=== PATIENT | male | born 1975 | race Caucasian/White ===

== ENCOUNTER 2016-08-27 11:47 | Emergency (ER) | payer OTHER ==
[~2016-08-27] VITALS: Ht 177.8 cm; Wt 98.0 kg
[2016-08-27 11:55] VITALS: Ht 177.8 cm; Wt 98.0 kg
[2016-08-27] MEDS ORDERED: SODIUM CHLORIDE 0.9% 1000ML 1,000 ML IV STA (12:25)
--- NOTE | 2016-08-27 12:33 | EMERGENCY ROOM VISIT NOTE ---
History First contact with patient: 12:17 Chief Complaint: FEVER Stated Complaint: HEART BEATING FUNNY, FEVER History of Present Illness The patient is a 41 year old male who presents to the Emergency Room with complaints of urinary symptoms. The patient is a paraplegic and self caths. The patient has a history of recurring urinary tract infections. He also had pyelonephritis approximately one year ago. The patient states he had a fever this morning that was 104F. He states that he took Advil at 9 AM. The patient states that his urine is quite dark and does notice some burning with urination. He denies any pain in his chest or trouble breathing. He denies any abdominal pain, nausea or vomiting. He denies any back pain. Review of Systems A 10 system review of systems was completed with positives and pertinent negatives listed in the HPI. Past Medical/Surgical History Medical Problems: (1) Acute urinary tract infection (2) Kidney stone (3) Small bowel obstruction Social History Smoking Status: Never Smoker Alcohol Use: none Drug Use: none Marital Status: single Housing Status: lives alone Occupation Status: unemployed Current/Historical Medications Scheduled Cephalexin Monohydrate (Keflex), 500 MG PO QID Gabapentin (Gabapentin), 800 MG PO TID Ibuprofen Tab (Advil), 400 MG PO DAILY Methenamine Hippurate (Methenamine Hippurate), 1 GM PO BID Multiple Vitamin (Multivitamin), 1 TAB PO DAILY Temazepam (Restoril), 30 MG PO HS Allergies Coded Allergies: Kiwi (Verified Allergy, Severe, THROAT SWELLING, 08/27/16) Adhesives (Verified Allergy, Intermediate, BLISTERS , 08/27/16) Baclofen (Verified Allergy, Intermediate, HIVES, 08/27/16) Hydromorphone (Verified Allergy, Mild, RASH, 08/27/16) Aloe (Verified Allergy, Unknown, 08/27/16) Diphenhydramine (Verified Allergy, Unknown, 08/27/16) Heparin (Verified Allergy, Unknown, 08/27/16) Hydrocortisone (Verified Allergy, Unknown, RASH;ITCHING;SEVERE SWELLING, ) Megestrol (Verified Allergy, Unknown, 08/27/16) Nitrofurantoin (Verified Allergy, Unknown, 08/27/16) Oxybutynin (Verified Allergy, Unknown, 08/27/16) Replaces DITROPAN SYRU Pregabalin (Verified Allergy, Unknown, 08/27/16) Quinolones (Verified Allergy, Unknown, HAS TAKEN LEVAQUIN IN PAST W/O RXN DESPITE "QUINOLONE" ALLER, 08/27/16) Sulfa Drugs (Verified Allergy, Unknown, 08/27/16) Physical Exam Vital Signs Date Time Temp Pulse Resp B/P Pulse Ox O2 Delivery O2 Flow Rate FiO2 08/27/16 14:34 91 141/104 99 08/27/16 13:58 36.7 88 151/97 98 08/27/16 11:55 36.8 98 18 168/113 98 Room Air Physical Exam VITALS: Vitals are noted on the nurse's note and reviewed by myself. Vital signs stable. The patient is afebrile. GENERAL: This is a 41-year-old male, in no acute distress, nondiaphoretic, well- developed well-nourished. SKIN: The skin was without rashes, erythema, edema, or bruising. There is no tenting of the skin. Capillary reflex less than 2 seconds. HEAD: Normocephalic atraumatic. EARS: The external ears are normal in appearance. EYES: Pupils equal round and reactive to light and accommodation. Conjunctivae without injection, sclerae without icterus. Extraocular movements intact. NOSE: Patent, turbinates without inflammation or discharge. MOUTH: Mucous membranes moist. Tonsils are not enlarged. Pharynx without erythema or exudate. Uvula midline. Airway patent. Tongue does not deviate. NECK: Supple without nuchal rigidity. No JVD. HEART: Regular rate and rhythm without murmurs gallops or rubs. LUNGS: Clear to auscultation bilaterally without wheezes, rales or rhonchi. No retractions or accessory muscle use. ABDOMEN: Positive bowel sounds x 4. Soft, nontender, without masses or organomegaly. There is no CVA tenderness. MUSCULOSKELETAL: The patient is paraplegic. He does not have sensation below the knees. The patient's strength and movement is at his baseline. NEURO: Patient was alert and oriented to person place and time. Medical Decision & Procedures Laboratory Results 08/27/16 12:35 Red Blood Count 5.45, Mean Corpuscular Volume 82.0, Mean Corpuscular Hemoglobin 28.8, Mean Corpuscular Hemoglobin Concent 35.1, Mean Platelet Volume 9.1, Neutrophils (%) (Auto) 61.1, Lymphocytes (%) (Auto) 28.0, Monocytes (%) (Auto) 9.6, Eosinophils (%) (Auto) 0.0, Basophils (%) (Auto) 0.3, Neutrophils # (Auto) 3.50, Lymphocytes # (Auto) 1.61, Monocytes # (Auto) 0.55, Eosinophils # (Auto) 0.00, Basophils # (Auto) 0.02 08/27/16 12:35 Test 08/27/16 12:35 08/27/16 12:50 White Blood Count 5.74 K/uL (4.8-10.8) Red Blood Count 5.45 M/uL (4.7-6.1) Hemoglobin 15.7 g/dL (14.0-18.0) Hematocrit 44.7 % (42-52) Mean Corpuscular Volume 82.0 fL (80-100) Mean Corpuscular Hemoglobin 28.8 pg (25-34) Mean Corpuscular Hemoglobin Concent 35.1 g/dl (32-36) Platelet Count 319 K/uL (130-400) Mean Platelet Volume 9.1 fL (7.4-10.4) Neutrophils (%) (Auto) 61.1 % Lymphocytes (%) (Auto) 28.0 % Monocytes (%) (Auto) 9.6 % Eosinophils (%) (Auto) 0.0 % Basophils (%) (Auto) 0.3 % Neutrophils # (Auto) 3.50 K/uL (1.4-6.5) Lymphocytes # (Auto) 1.61 K/uL (1.2-3.4) Monocytes # (Auto) 0.55 K/uL (0.11-0.59) Eosinophils # (Auto) 0.00 K/uL (0-0.5) Basophils # (Auto) 0.02 K/uL (0-0.2) RDW Standard Deviation 40.1 fL (36.4-46.3) RDW Coefficient of Variation 13.4 % (11.5-14.5) Immature Granulocyte % (Auto) 1.0 % Immature Granulocyte # (Auto) 0.06 K/uL (0.00-0.02) Anion Gap 13.0 mmol/L (3-11) Est Creatinine Clear Calc Drug Dose 151.2 ml/min Estimated GFR () 132.5 Estimated GFR (Non- 114.3 BUN/Creatinine Ratio 24.6 (10-20) Calcium Level 9.7 mg/dl (8.5-10.1) Total Bilirubin 0.5 mg/dl (0.2-1) Aspartate Amino Transf (AST/SGOT) 30 U/L (15-37) Alanine Aminotransferase (ALT/SGPT) 64 U/L (12-78) Alkaline Phosphatase 122 U/L (45-117) Total Protein 8.1 gm/dl (6.4-8.2) Albumin 4.5 gm/dl (3.4-5.0) Globulin 3.6 gm/dl (2.5-4.0) Albumin/Globulin Ratio 1.3 (0.9-2) Urine Color YELLOW Urine Appearance TURBID (CLEAR) Urine pH 7.0 (4.5-7.5) Urine Specific Collins 1.025 (1.000-1.030) Urine Protein TRACE (NEG) Urine Glucose (UA) NEG (NEG) Urine Ketones NEG (NEG) Urine Occult Blood 1+ (NEG) Urine Nitrite POS (NEG) Urine Bilirubin NEG (NEG) Urine Urobilinogen NEG (NEG) Urine Leukocyte Esterase SMALL (NEG) Urine WBC (Auto) >30 /hpf (0-5) Urine RBC (Auto) 0-4 /hpf (0-4) Urine Hyaline Casts (Auto) 5-10 /lpf (0-5) Urine Epithelial Cells (Auto) 10-20 /lpf (0-5) Urine Bacteria (Auto) 1+ (NEG) Urine Pathogenic Casts /lpf (0) Medications Administered Medications (Trade) Dose Ordered Sig/Sky Route Start Time Stop Time Status Last Admin Dose Admin Sodium Chloride (Nss 1000ml) 1,000 ml @ 999 mls/hr Q1H1M STAT IV 08/27/16 12:25 08/27/16 15:06 DC 08/27/16 12:25 999 MLS/HR Ceftriaxone Sodium (Rocephin Inj) 1 gm NOW STAT IV 08/27/16 13:47 08/27/16 15:06 DC 08/27/16 13:55 1 GM Acetaminophen (Tylenol Tab) 1,000 mg NOW STAT PO 08/27/16 13:59 08/27/16 15:06 DC 08/27/16 14:20 1,000 MG ED Course I did review previous urine cultures. The patient typically grows out organisms that are resistant to fluoroquinolones but seemed to be sensitive to cephalosporins. The patient was seen and examined. Previous visits were reviewed. The patient is afebrile. He is nontoxic in appearance. He does not have a leukocytosis. He does not have any significant electrolyte abnormality. Urinalysis suggests urinary tract infection. The patient was given 1 g IV Rocephin and will be placed on Keflex. He does not have any vomiting or back pain. I feel that the patient could be trialed as an outpatient with oral Keflex. He was advised to return immediately with any worsening pain, back pain, vomiting or generalized worsening symptoms as he may require admission if the symptoms are not improving. Otherwise, he should follow-up with his family doctor next week. The patient was also seen and examined by who agrees with the assessment and treatment plan. Medical Decision The differential diagnosis includes pyelonephritis, urinary tract infection, kidney stone, sepsis, among others Impression Primary Impression: Urinary tract infection Departure Information Dispostion Home / Self-Care Condition GOOD Prescriptions Cephalexin Monohydrate (Keflex) 500 Mg Cap 500 MG PO QID for 10 Days, #40 CAP Prov: Tory Garcia PA-C 08/27/16 Referrals Oscar Martin M.D. (PCP) Patient Instructions My [facility], Urinary Tract Infecs Men Additional Instructions Keflex every 6 hours for 10 days Advil 600 mg every 6 hours You may take Tylenol every 4-6 hours for additional fever control; no more than 4 g of Tylenol in 24 hours Return to the emergency department immediately with vomiting, back pain, inability to keep the antibiotic down as this may require admission to the hospital for IV antibiotics Otherwise, follow up with your family doctor next week Problem Qualifiers Primary Impression: Urinary tract infection Urinary tract infection type: acute cystitis Hematuria presence: without hematuria Qualified Codes: N30.00 - Acute cystitis without hematuria
[2016-08-27 12:50] LABS: BASO % 0.3 %; BASO ABS # 0.02 K/uL (0-0.2); COMPLETE YES; HEMATOCRIT 44.7 % (42-52); LYMPH ABS # 1.61 K/uL (1.2-3.4); MEAN CORPUSCULAR HEMOGLOBIN 28.8 pg (25-34); MEAN CORPUSCULAR HGB CONC 35.1 g/dl (32-36); MEAN PLATELET VOLUME 9.1 fL (7.4-10.4); MONO % 9.6 %; NEUT % 61.1 %; PLATELET COUNT 319 K/uL (130-400); RED BLOOD COUNT 5.45 M/uL (4.7-6.1); WHITE BLOOD COUNT 5.74 K/uL (4.8-10.8)
[2016-08-27 13:08] LABS: BUN/CREATININE RATIO 24.6 (10-20); CALCIUM 9.7 mg/dl (8.5-10.1); CREATININE 0.77 mg/dl (0.60-1.40); POTASSIUM 3.3 mmol/L (3.5-5.1)
[2016-08-27 13:10] LABS: ALB/GLOB RATIO 1.3 (0.9-2)
[2016-08-27 13:17] LABS: URINE APPEARANCE TURBID (CLEAR); URINE BILIRUBIN NEG (NEG); URINE COLOR YELLOW; URINE NITRITE POS (NEG); URINE SPECIFIC GRAVITY 1.025 (1.000-1.030); UROBILINOGEN NEG (NEG); ZZURINE CULT IF INDIC CATH YES
[2016-08-27 13:23] LABS: MANUAL MICROSCOPIC REQUIRED? NO; REVIEW REQ? YES
[2016-08-27] MEDS ORDERED: CEFTRIAXONE SOD INJ 1 GM ADDVIAL IV STA (13:47)
[2016-08-27 13:58] VITALS: TEMP 36.7
[2016-08-27] MEDS ORDERED: ACETAMINOPHEN 500 MG TAB PO STA (13:59)
[2016-08-27] MEDS ORDERED: CEPH500C PO (14:03)
[2016-08-27 14:34] VITALS: BP 141/104; PULSE 91; O2SAT 99
[2016-08-28] MEDS ORDERED: NRN800 PO (00:47)
[2016-08-28] MEDS ORDERED: METH1TAB5 PO (00:49)
[2016-08-28] MEDS ORDERED: IBUP-103 PO (12:26)
[2016-08-28] MEDS ORDERED: MULTTAB58 PO (12:27)
[2016-08-28] MEDS ORDERED: TEMA30CA4 PO (20:41)
[2016-08-29] MEDS ORDERED: CEFP200T14 PO (10:24)
--- NOTE | 2016-08-29 11:21 | Pharmacy Progress Note ---
ED Pharmacist Culture FollowUp Date of Service: Aug 29, 2016. Patient's urine cx from 08/27 is growing Enterobacter aerogenes. He was admitted to [facility] and received treatment with Rocephin first then was changed to Cefepime. Today he is being discharged by Dr Thomason with a Rx for Vantin which should cover this organism based upon reported sensitivities. No action required from ER standpoint.
[2016-09-20] MEDS ORDERED: MULT-506 PO (10:32)
[2016-10-25] MEDS ORDERED: LEVO1TAB34 PO (09:57)
== END 2016-08-27 14:35 | disposition home or self-care (01) ==
LOC: C.EDB 11:49 → C.EDC 14:35
DX: N30.00 Acute cystitis without hematuria (principal); G82.20 Paraplegia, unspecified; Z87.440 Personal history of urinary (tract) infections

== ENCOUNTER 2016-08-28 19:06 | Inpatient (IN) | payer OTHER ==
[~2016-08-28] VITALS: Ht 177.8 cm; Wt 97.7 kg
[~2016-08-28 19:06] MED LIST: CEPH500C PO; IBUP-103 PO; METH1TAB5 PO; MULTTAB58 PO; NRN800 PO
[2016-08-28] MEDS ORDERED: CEFTRIAXONE SOD INJ 1 GM ADDVIAL IV STA (19:23)
[2016-08-28] MEDS ORDERED: ONDANSETRON INJ 2 MG/ML 2 ML VIAL IV STA (19:23)
[2016-08-28] MEDS ORDERED: SODIUM CHLORIDE 0.9% 1000ML 500 ML IV STA (19:23)
--- NOTE | 2016-08-28 19:37 | EMERGENCY ROOM VISIT NOTE ---
History Report prepared by Za: Ashley Barton Under the Supervision of: Dr. Tito Clayton M.D. First contact with patient: 19:17 Chief Complaint: FEVER Stated Complaint: FEVER,LEFT SIDE KIDNEY PAIN History of Present Illness The patient is a 41 year old male who presents to the Emergency Room with complaints of worsening left flank pain over the past 2 days. His current pain is a 7/10 in severity. He also complains of a fever, nausea, and vomiting that began yesterday. He has been trying to take Tylenol and Advil. The patient has been able to keep some of his medications down, but he occasionally vomits them back up. He cannot keep any food down. He does have a history of kidney stones and has passed at least 2 stones in the past couple of weeks. He has had pyelonephritis in the past and states that his current symptoms feel similar to previous episodes of pyelonephritis. The patient self-caths every 4-6 hours due to a history of paraplegia. The patient was in the emergency room yesterday and was diagnosed with a UTI. He had a chemistry panel and CBC which were unrevealing. Urine showed evidence for infection. He received a dose of ceftriaxone IV and was prescribed Keflex. Source of History: patient Onset: 2 days ago Position: other (left flank) Symptom Intensity: 7/10 Timing: worsening Associated Symptoms: + fevers, + nausea, + vomiting Review of Systems See HPI for pertinent positives & negatives. A total of 10 systems reviewed and were otherwise negative. Past Medical & Surgical Medical Problems: (1) Acute urinary tract infection (2) Kidney stone (3) Small bowel obstruction Family History Cancer Diabetes mellitus FH: heart disease Hypertension Social History Smoking Status: Never Smoker Alcohol Use: none Drug Use: none Marital Status: single Housing Status: lives alone Occupation Status: unemployed Current/Historical Medications Scheduled Cephalexin Monohydrate (Keflex), 500 MG PO QID Gabapentin (Gabapentin), 800 MG PO TID Ibuprofen Tab (Advil), 400 MG PO DAILY Methenamine Hippurate (Methenamine Hippurate), 1 GM PO BID Multiple Vitamin (Multivitamin), 1 TAB PO DAILY Temazepam (Restoril), 30 MG PO HS Allergies Coded Allergies: Kiwi (Verified Allergy, Severe, THROAT SWELLING, 08/27/16) Adhesives (Verified Allergy, Intermediate, BLISTERS , 08/27/16) Baclofen (Verified Allergy, Intermediate, HIVES, 08/27/16) Hydromorphone (Verified Allergy, Mild, RASH, 08/27/16) Aloe (Verified Allergy, Unknown, 08/27/16) Diphenhydramine (Verified Allergy, Unknown, 08/27/16) Heparin (Verified Allergy, Unknown, 08/27/16) Hydrocortisone (Verified Allergy, Unknown, RASH;ITCHING;SEVERE SWELLING, ) Megestrol (Verified Allergy, Unknown, 08/27/16) Nitrofurantoin (Verified Allergy, Unknown, 08/27/16) Oxybutynin (Verified Allergy, Unknown, 08/27/16) Replaces DITROPAN SYRU Pregabalin (Verified Allergy, Unknown, 08/27/16) Quinolones (Verified Allergy, Unknown, HAS TAKEN LEVAQUIN IN PAST W/O RXN DESPITE "QUINOLONE" ALLER, 08/27/16) Sulfa Drugs (Verified Allergy, Unknown, 08/27/16) Physical Exam Vital Signs Date Time Temp Pulse Resp B/P Pulse Ox O2 Delivery O2 Flow Rate FiO2 08/28/16 20:48 92 20 164/113 98 Room Air 08/28/16 19:13 36.9 90 20 164/119 96 Room Air Physical Exam GENERAL: Patient is in no acute distress. HEENT: No acute trauma, normocephalic atraumatic, mucous membranes moist, no nasal congestion, no scleral icterus. NECK: No stridor, no adenopathy, no meningismus, trachea is midline. LUNGS: Clear to auscultation bilaterally, no wheeze, no rhonchi, breath sounds equal. HEART: Without murmurs gallops or rubs, regular rate and rhythm. ABDOMEN: Soft, tender in the left upper quadrant, bowel sounds positive, no hernias, no peritonitis. BACK: Left flank discomfort with percussion. EXTREMITIES: No cyanosis or edema, full range of motion of all the joints without pain or difficulty, no signs for acute trauma. NEUROLOGIC: Evidence for paraplegia noted, awake, alert, and oriented x3. SKIN: No rash, no jaundice, no diaphoresis. Medical Decision & Procedures ER Provider Diagnostic Interpretation: CT results as stated below per my review and radiologist interpretation: CT SCAN OF THE ABDOMEN AND PELVIS WITHOUT IV CONTRAST CLINICAL HISTORY: Flank pain and hematuria. COMPARISON STUDY: Abdominal CT dated 06/03/2015. TECHNIQUE: CT scan of the abdomen and pelvis is performed from the lung bases to the proximal femora. Images are reviewed in the axial, sagittal, and coronal planes. IV contrast was not administered for this examination. Automated dose control exposure was utilized. The examination is significantly degraded by metallic streak artifact from extensive orthopedic spinal hardware as well as an electronic device along the right abdominal pannus. CT DOSE: 1476.04 mGy.cm FINDINGS: Lung bases: The heart is normal in size and without pericardial effusion. The lung bases are clear noting bibasilar atelectasis. Liver: Evaluation of the liver is degraded by streak artifact. The unenhanced liver is normal in size, contour, and attenuation. There is no intrahepatic biliary ductal dilatation. Gallbladder: Calcified gallstones are identified. The gallbladder is otherwise normal in appearance. Spleen: Normal in size and attenuation. Pancreas: Unremarkable. Adrenal glands: Unremarkable. Kidneys: The unenhanced kidneys demonstrate cortical atrophy and are without hydronephrosis. There is a 9 mm calculus in the right renal pelvis. No left renal calculi are identified. Foci of cortical scarring are present in the upper pole of the right kidney. There is no evidence of contour deforming renal mass lesion. Abdominal vasculature: The abdominal aorta is normal in course and caliber. Bowel: A small bowel anastomosis is noted in the right lower quadrant. There is laxity of the ventral abdominal wall with a small bowel containing hernia. No bowel obstruction is seen. The appendix is well-visualized and normal. Peritoneum: There is no intraperitoneal free air or abdominal ascites. There is a fat-containing umbilical hernia. A neurostimulator device is present within the right lower quadrant abdominal pannus. Leads extend into the thoracic spinal canal posteriorly. There is marked fatty atrophy of the paraspinal, iliopsoas, and pelvic musculature. Lymphadenopathy: None. Pelvic viscera: The bladder wall appears irregular and demonstrates submucosal fat deposition. The prostate gland is diminutive versus surgically absent. The seminal vesicles are normal as imaged. Skeletal structures: The skeletal structures are osteopenic. There is chronic deformity of the hips and bony pelvis. Postoperative changes partially visualized in the right femur. There are postoperative changes from T11 -L3 spinal fusion. No lytic or blastic lesions are seen. IMPRESSION: 1. No acute infectious or inflammatory findings are identified in the abdomen or pelvis. 2. There is a 9 mm calculus in the right renal pelvis. No hydronephrosis is identified. 3. There is a small bowel containing ventral hernia. No bowel obstruction is seen. 4. Cholelithiasis without CT evidence of acute cholecystitis. 5. The bladder wall is abnormal in appearance and demonstrates submucosal fat deposition. This could be related to a chronic neurogenic bladder or possibly an ileal neobladder. Correlation with the patient's medical and surgical history be required. 6. Additional chronic findings as above. Electronically signed by: Tito Hope M.D. 08/28/2016 9:31 PM Dictated Date/Time: 08/28/2016 9:21 PM Laboratory Results 08/28/16 20:51 Red Blood Count 5.66, Mean Corpuscular Volume 81.4, Mean Corpuscular Hemoglobin 28.4, Mean Corpuscular Hemoglobin Concent 34.9, Mean Platelet Volume 9.1, Neutrophils (%) (Auto) 57.8, Lymphocytes (%) (Auto) 33.7, Monocytes (%) (Auto) 7.5, Eosinophils (%) (Auto) 0.0, Basophils (%) (Auto) 0.2, Neutrophils # (Auto) 3.02, Lymphocytes # (Auto) 1.76, Monocytes # (Auto) 0.39, Eosinophils # (Auto) 0.00, Basophils # (Auto) 0.01 08/28/16 20:51 Test 08/28/16 20:51 White Blood Count 5.22 K/uL (4.8-10.8) Red Blood Count 5.66 M/uL (4.7-6.1) Hemoglobin 16.1 g/dL (14.0-18.0) Hematocrit 46.1 % (42-52) Mean Corpuscular Volume 81.4 fL (80-100) Mean Corpuscular Hemoglobin 28.4 pg (25-34) Mean Corpuscular Hemoglobin Concent 34.9 g/dl (32-36) Platelet Count 308 K/uL (130-400) Mean Platelet Volume 9.1 fL (7.4-10.4) Neutrophils (%) (Auto) 57.8 % Lymphocytes (%) (Auto) 33.7 % Monocytes (%) (Auto) 7.5 % Eosinophils (%) (Auto) 0.0 % Basophils (%) (Auto) 0.2 % Neutrophils # (Auto) 3.02 K/uL (1.4-6.5) Lymphocytes # (Auto) 1.76 K/uL (1.2-3.4) Monocytes # (Auto) 0.39 K/uL (0.11-0.59) Eosinophils # (Auto) 0.00 K/uL (0-0.5) Basophils # (Auto) 0.01 K/uL (0-0.2) RDW Standard Deviation 39.2 fL (36.4-46.3) RDW Coefficient of Variation 13.2 % (11.5-14.5) Immature Granulocyte % (Auto) 0.8 % Immature Granulocyte # (Auto) 0.04 K/uL (0.00-0.02) Anion Gap 12.0 mmol/L (3-11) Est Creatinine Clear Calc Drug Dose 173.6 ml/min Estimated GFR () 140.3 Estimated GFR (Non- 121.0 BUN/Creatinine Ratio 25.5 (10-20) Calcium Level 9.6 mg/dl (8.5-10.1) Total Bilirubin 0.8 mg/dl (0.2-1) Aspartate Amino Transf (AST/SGOT) 36 U/L (15-37) Alanine Aminotransferase (ALT/SGPT) 67 U/L (12-78) Alkaline Phosphatase 128 U/L (45-117) Total Protein 8.5 gm/dl (6.4-8.2) Albumin 4.8 gm/dl (3.4-5.0) Globulin 3.7 gm/dl (2.5-4.0) Albumin/Globulin Ratio 1.3 (0.9-2) Lipase 158 U/L (73-393) Laboratory results reviewed by me. Medications Administered Medications (Trade) Dose Ordered Sig/Sky Route Start Time Stop Time Status Last Admin Dose Admin Sodium Chloride (Nss 1000ml) 500 ml @ 999 mls/hr Q31M STAT IV 08/28/16 19:23 08/28/16 19:53 DC 08/28/16 20:49 999 MLS/HR Ondansetron HCl (Zofran Inj) 4 mg NOW STAT IV 08/28/16 19:23 08/28/16 19:27 DC 08/28/16 20:49 4 MG Morphine Sulfate (MoRPHine SULFATE INJ) 4 mg Q15M PRN IV 08/28/16 19:30 09/11/16 19:29 08/28/16 20:49 4 MG ED Course 1918: The patient was evaluated in room B3. A complete history and physical exam was performed. I discussed the treatment plan with the patient and he was in agreement. 1922: Ordered Rocephin Inj 1 gm IV, Zofran Inj 4 mg IV, NSS 500 ml @ 999 mls/hr IV. 1929: Ordered Morphine Sulfate 4 mg IV. 1950: I discussed the case with Jayson Vitale [facility]. The patient will be evaluated for further management. Medical Decision Differential includes pyelonephritis, renal colic, urinary obstruction, failed outpatient treatment, renal failure, dehydration. There is no leukocytosis or worrisome anemia. No significant electrolyte abnormality, kidney failure or hepatitis. Abdominal and pelvis CT does not show any urinary obstruction, there were some changes to the bladder for which follow-up was suggested. No acute surgical process by CT. I reviewed the patient's workup from a few days ago. His urine was dirty and 2 different gram-negative bacilli were already growing on his urine culture. The patient has acute pyelonephritis and is failing outpatient treatment. Admission/observation is warranted. He did receive IV ceftriaxone, IV saline, IV morphine and IV Zofran. I spoke to the patient and case management. The on- call hospitalist was consulted. Consults Time Called: 1927 Consulting Phys[facility] Returned Call: 1950 I discussed the case with him. The patient will be evaluated for further management. Impression Primary Impression: Pyelonephritis Additional Impressions: Failure of outpatient treatment Vomiting Scribe Attestation The scribe's documentation has been prepared under my direction and personally reviewed by me in its entirety. I confirm that the note above accurately reflects all work, treatment, procedures, and medical decision making performed by me. Departure Information Dispostion Being Evaluated By Hospitalist Oscar Rendon M.D. (PCP) Patient Instructions My [facility] [address] Problem Qualifiers
[2016-08-28] MEDS ORDERED: ONDANSETRON INJ 2 MG/ML 2 ML VIAL IV PRN (20:00)
[2016-08-28] MEDS ORDERED: CEFTRIAXONE SOD INJ 1 GM in DEXTROSE 5% ADD-VANTAGE 50ML 50 ML IV SCH (20:00)
[2016-08-28] MEDS ORDERED: ACETAMINOPHEN 325 MG TAB PO PRN (20:00)
[2016-08-28] MEDS ORDERED: POLYETHYLENE (MIRALAX) 17 GM PACK PO PRN (20:00)
[2016-08-28] MEDS ORDERED: MoRPHine SULFATE 4 MG/ML 1 ML CARP\\VIAL IV PRN (20:00)
[2016-08-28] MEDS ORDERED: ALUMINUM/MAGNESIUM/SIMETH (MAALOX MAX) 30 ML UDC PO PRN (20:00)
[2016-08-28] MEDS ORDERED: MAGNESIUM HYDROXIDE SUSP 30 ML UDC PO PRN (20:00)
--- NOTE | 2016-08-28 20:16 | History and Physical ---
History & Physical Date & Time of Service: Aug 28, 2016 at 20:09 Chief Complaint: Fever,Left Side Kidney Pain Primary Care Physician: Oscar Martin M.D. History of Present Illness Source: patient 41 y/o paraplegic male Hx renal calculi and SBO who self catheterizes and is susceptible to UTIs. Presented to the ER earlier in day with mild flank pain and fever. He was given hydration and antibiotics and D/Cd. Now presents with worsening pain, fever and persistent vomiting. He was unable as a result to take his PO antibiotics. Past Medical/Surgical History Medical Problems: (1) Acute urinary tract infection Status: Resolved (2) Kidney stone Status: Resolved (3) Small bowel obstruction Status: Resolved Family History Cancer Diabetes mellitus FH: heart disease Hypertension Social History Smoking Status: Never Smoker Drug Use: none Marital Status: single Housing status: lives with family Occupational Status: unemployed Immunizations History of Influenza Vaccine: No History of Tetanus Vaccine?: Yes History of Pneumococcal: No History of Hepatitis B Vaccine: No Hepatitis Immunization Date: Apr 08, 1999 Multi-Drug Resistant Organisms History of MDRO: No Allergies Coded Allergies: Kiwi (Verified Allergy, Severe, THROAT SWELLING, 08/27/16) Adhesives (Verified Allergy, Intermediate, BLISTERS , 08/27/16) Baclofen (Verified Allergy, Intermediate, HIVES, 08/27/16) Hydromorphone (Verified Allergy, Mild, RASH, 08/27/16) Aloe (Verified Allergy, Unknown, 08/27/16) Diphenhydramine (Verified Allergy, Unknown, 08/27/16) Heparin (Verified Allergy, Unknown, 08/27/16) Hydrocortisone (Verified Allergy, Unknown, RASH;ITCHING;SEVERE SWELLING, ) Megestrol (Verified Allergy, Unknown, 08/27/16) Nitrofurantoin (Verified Allergy, Unknown, 08/27/16) Oxybutynin (Verified Allergy, Unknown, 08/27/16) Replaces DITROPAN SYRU Pregabalin (Verified Allergy, Unknown, 08/27/16) Quinolones (Verified Allergy, Unknown, HAS TAKEN LEVAQUIN IN PAST W/O RXN DESPITE "QUINOLONE" ALLER, 08/27/16) Sulfa Drugs (Verified Allergy, Unknown, 08/27/16) Home Medications Scheduled Cephalexin Monohydrate (Keflex), 500 MG PO QID Gabapentin (Gabapentin), 800 MG PO TID Ibuprofen Tab (Advil), 400 MG PO DAILY Methenamine Hippurate (Methenamine Hippurate), 1 GM PO BID Multiple Vitamin (Multivitamin), 1 TAB PO DAILY Temazepam (Restoril), 30 MG PO HS Review of Systems Constitutional: + chills, + fever, + sweats Eyes: No eye pain, No worsening of vision ENT: No hearing loss, No nasal symptoms, No unusual epistaxis Respiratory: No cough, No sputum, No wheezing Cardiovascular: No PND, No chest pain, No orthopnea Abdomen: + nausea, + pain, + vomiting Musculoskeletal: + muscle pain (chronic), No joint pain Genitourinary - Male: + dysuria, + urinary retention, No hematuria Neurologic: + paralysis, + weakness (chronic), No memory loss Psychiatric: No depression symptoms Endocrine: + fatigue Hematologic / Lymphatic: No abnormal bleeding/bruising Integumentary: No rash Allergic / Immunologic: No environmental allergies Physical Exam Vital Signs Date Time Temp Pulse Resp B/P Pulse Ox O2 Delivery O2 Flow Rate FiO2 08/28/16 19:13 36.9 90 20 164/119 96 Room Air General Appearance: WD/WN, no apparent distress Head: normocephalic, atraumatic Eyes: normal inspection ENT: normal ENT inspection, hearing grossly normal, TMs normal, pharynx normal Neck: supple, no JVD Respiratory/Chest: chest non-tender, lungs clear, normal breath sounds, no respiratory distress, no accessory muscle use Cardiovascular: regular rate, rhythm, no edema, no gallop, no JVD, no murmur, normal peripheral pulses Abdomen/GI: normal bowel sounds, non tender, soft, no organomegaly, no pulsatile mass, normal rectal exam, occult blood negative Back: normal inspection Extremities/Musculoskelatal: normal inspection, no calf tenderness, normal capillary refill, no pedal edema, normal range of motion Neurologic/Psych: plastic tile layer II-XII nml as tested, no motor/sensory deficits, alert, normal mood/affect, normal reflexes, oriented x 3 Skin: normal color, warm/dry, no rash Diagnostics Laboratory Results Results Past 24 Hours Test 08/28/16 19:23 Range/Units Microbiology Results 08/28/16 Blood Culture, Zohra Batch Pending 08/28/16 Blood Culture, Zohra Batch Pending Diagnostic Radiology CT abdomen 1. No acute infectious or inflammatory findings are identified in the abdomen or pelvis. 2. There is a 9 mm calculus in the right renal pelvis. No hydronephrosis is identified. 3. There is a small bowel containing ventral hernia. No bowel obstruction is seen. 4. Cholelithiasis without CT evidence of acute cholecystitis Impression Assessment and Plan 41 y/o paraplegic male Hx renal calculi and SBO who self catheterizes and is susceptible to UTIs. Presented to the ER earlier in day with mild flank pain and fever. He was given hydration and antibiotics and D/Cd. Now presents with worsening pain, fever and persistent vomiting. He was unable as a result to take his PO antibiotics. 1) UTI / pyelonephritis - pt will be admitted and started on Cefipime pending culture results - antiemetics and IVF will be provided until he can tolerate PO A CT did not reveal an obstructive calculus however there is a stone in the renal pelvis which may eventually require attention 2) Pt self caths and can continue to do so while in hospital Full code - SCDs due to heparin allergy Total time for this admit including chart/record review - review of labs, meds, CT - discussion with ER attending and pt - 32 min Level of Care Med/Surg Resuscitation Status FULL RESUSCITATION VTE Prophylaxis VTE Risk Assessment Done? Y/N: Yes Risk Level: Moderate Given or contraindicated: SCD's
[2016-08-28] MEDS ORDERED: TEMA30CA4 PO (20:41)
[2016-08-28] MEDS: MoRPHine SULFATE 4 MG/ML 1 ML CARP\\VIAL IV PRN ×2 (20:49→23:49)
[2016-08-28 21:04] LABS: BASO % 0.2 %; BASO ABS # 0.01 K/uL (0-0.2); COMPLETE YES; HEMATOCRIT 46.1 % (42-52); IG% 0.8 %; LYMPH % 33.7 %; LYMPH ABS # 1.76 K/uL (1.2-3.4); MEAN CELL VOLUME 81.4 fL (80-100); MEAN CORPUSCULAR HEMOGLOBIN 28.4 pg (25-34); MEAN CORPUSCULAR HGB CONC 34.9 g/dl (32-36); MEAN PLATELET VOLUME 9.1 fL (7.4-10.4); MONO % 7.5 %; NEUT % 57.8 %; PLATELET COUNT 308 K/uL (130-400); RED BLOOD COUNT 5.66 M/uL (4.7-6.1); WHITE BLOOD COUNT 5.22 K/uL (4.8-10.8)
--- NOTE | 2016-08-28 21:33 | DIAGNOSTIC IMAGING REPORT ---
CT SCAN OF THE ABDOMEN AND PELVIS WITHOUT IV CONTRAST CLINICAL HISTORY: Flank pain and hematuria. COMPARISON STUDY: Abdominal CT dated 06/03/2015. TECHNIQUE: CT scan of the abdomen and pelvis is performed from the lung bases to the proximal femora. Images are reviewed in the axial, sagittal, and coronal planes. IV contrast was not administered for this examination. Automated dose control exposure was utilized. The examination is significantly degraded by metallic streak artifact from extensive orthopedic spinal hardware as well as an electronic device along the right abdominal pannus. CT DOSE: 1476.04 mGy.cm FINDINGS: Lung bases: The heart is normal in size and without pericardial effusion. The lung bases are clear noting bibasilar atelectasis. Liver: Evaluation of the liver is degraded by streak artifact. The unenhanced liver is normal in size, contour, and attenuation. There is no intrahepatic biliary ductal dilatation. Gallbladder: Calcified gallstones are identified. The gallbladder is otherwise normal in appearance. Spleen: Normal in size and attenuation. Pancreas: Unremarkable. Adrenal glands: Unremarkable. Kidneys: The unenhanced kidneys demonstrate cortical atrophy and are without hydronephrosis. There is a 9 mm calculus in the right renal pelvis. No left renal calculi are identified. Foci of cortical scarring are present in the upper pole of the right kidney. There is no evidence of contour deforming renal mass lesion. Abdominal vasculature: The abdominal aorta is normal in course and caliber. Bowel: A small bowel anastomosis is noted in the right lower quadrant. There is laxity of the ventral abdominal wall with a small bowel containing hernia. No bowel obstruction is seen. The appendix is well-visualized and normal. Peritoneum: There is no intraperitoneal free air or abdominal ascites. There is a fat-containing umbilical hernia. A neurostimulator device is present within the right lower quadrant abdominal pannus. Leads extend into the thoracic spinal canal posteriorly. There is marked fatty atrophy of the paraspinal, iliopsoas, and pelvic musculature. Lymphadenopathy: None. Pelvic viscera: The bladder wall appears irregular and demonstrates submucosal fat deposition. The prostate gland is diminutive versus surgically absent. The seminal vesicles are normal as imaged. Skeletal structures: The skeletal structures are osteopenic. There is chronic deformity of the hips and bony pelvis. Postoperative changes partially visualized in the right femur. There are postoperative changes from T11 -L3 spinal fusion. No lytic or blastic lesions are seen. IMPRESSION: 1. No acute infectious or inflammatory findings are identified in the abdomen or pelvis. 2. There is a 9 mm calculus in the right renal pelvis. No hydronephrosis is identified. 3. There is a small bowel containing ventral hernia. No bowel obstruction is seen. 4. Cholelithiasis without CT evidence of acute cholecystitis. 5. The bladder wall is abnormal in appearance and demonstrates submucosal fat deposition. This could be related to a chronic neurogenic bladder or possibly an ileal neobladder. Correlation with the patient's medical and surgical history be required. 6. Additional chronic findings as above. Electronically signed by: Tito Hope M.D. 08/28/2016 9:31 PM Dictated Date/Time: 08/28/2016 9:21 PM
[2016-08-28 21:36] LABS: BUN/CREATININE RATIO 25.5 (10-20); CALCIUM 9.6 mg/dl (8.5-10.1); CREATININE 0.67 mg/dl (0.60-1.40)
[2016-08-28 21:39] LABS: ALB/GLOB RATIO 1.3 (0.9-2)
[2016-08-29 01:00] VITALS: BP 163/103; PULSE 75; TEMP 36.9; O2SAT 97; Ht 177.8 cm; Wt 97.7 kg
[2016-08-29] MEDS: SODIUM CHLORIDE 0.9% 1000ML 1,000 ML IV SCH ×2 (01:50→08:46)
[2016-08-29] MEDS: CEFEPIME IV 1,000 MG in DEXTROSE 5% 100ML 100 ML IV SCH ×2 (01:50→08:46)
[2016-08-29] MEDS ORDERED: TEMAZEPAM 15 MG CAP PO SCH (02:00)
[2016-08-29] MEDS: GABAPENTIN 800 MG TAB PO SCH ×2 (02:17→08:46)
[2016-08-29 04:43] VITALS: PULSE 89; TEMP 36.8; O2SAT 96
[2016-08-29 04:59] VITALS: BP 165/101
[2016-08-29 07:51] LABS: HEMATOCRIT 41.7 % (42-52); MEAN CELL VOLUME 83.2 fL (80-100); MEAN CORPUSCULAR HEMOGLOBIN 27.9 pg (25-34); MEAN CORPUSCULAR HGB CONC 33.6 g/dl (32-36); MEAN PLATELET VOLUME 9.1 fL (7.4-10.4); PLATELET COUNT 253 K/uL (130-400); RED BLOOD COUNT 5.01 M/uL (4.7-6.1); WHITE BLOOD COUNT 5.64 K/uL (4.8-10.8)
[2016-08-29 08:07] VITALS: BP 152/88; PULSE 75; TEMP 36.6; O2SAT 98
[2016-08-29 08:20] LABS: BLOOD UREA NITROGEN 17 mg/dl (7-18); CALCIUM 8.6 mg/dl (8.5-10.1); CARBON DIOXIDE 26 mmol/L (21-32); CHLORIDE 112 mmol/L (98-107); CREATININE 0.56 mg/dl (0.60-1.40); GLUCOSE 83 mg/dl (70-99); MAGNESIUM 2.3 mg/dl (1.8-2.4); POTASSIUM 3.1 mmol/L (3.5-5.1); SODIUM 148 mmol/L (136-145)
[2016-08-29] MEDS ORDERED: IBUPROFEN 200 MG TAB PO SCH (09:00)
[2016-08-29] MEDS ORDERED: MULTIVITAMIN TAB PO SCH (09:00)
[2016-08-29] MEDS ORDERED: CEFP200T14 PO (10:24)
--- NOTE | 2016-08-29 10:29 | Discharge Instructions ---
Discharge Instructions Admission Reason for Admission: UTI Discharge Discharge Diagnosis / Problem: Urinary tract infection Discharge Goals Goal(s): Decrease discomfort, Improve disease control (Prevent future urinary tract infections) Activity Recommendations Activity Limitations: resume your previous activity . Instructions / Follow-Up Instructions / Follow-Up Follow up with PCP within one week. Keep appointment with urologist next week. Current Hospital Diet Patient's current hospital diet: Regular Diet Discharge Diet Recommended Diet: Regular Diet Pending Studies Studies pending at discharge: yes List of pending studies: Blood cultures Laboratory Results Results Past 24 Hours Test 08/28/16 20:51 08/29/16 07:34 Range/Units White Blood Count 5.22 5.64 4.8-10.8 K/uL Red Blood Count 5.66 5.01 4.7-6.1 M/uL Hemoglobin 16.1 14.0 14.0-18.0 g/dL Hematocrit 46.1 41.7 42-52 % Mean Corpuscular Volume 81.4 83.2 80-100 fL Mean Corpuscular Hemoglobin 28.4 27.9 25-34 pg Mean Corpuscular Hemoglobin Concent 34.9 33.6 32-36 g/dl Platelet Count 308 253 130-400 K/uL Mean Platelet Volume 9.1 9.1 7.4-10.4 fL Neutrophils (%) (Auto) 57.8 % Lymphocytes (%) (Auto) 33.7 % Monocytes (%) (Auto) 7.5 % Eosinophils (%) (Auto) 0.0 % Basophils (%) (Auto) 0.2 % Neutrophils # (Auto) 3.02 1.4-6.5 K/uL Lymphocytes # (Auto) 1.76 1.2-3.4 K/uL Monocytes # (Auto) 0.39 0.11-0.59 K/uL Eosinophils # (Auto) 0.00 0-0.5 K/uL Basophils # (Auto) 0.01 0-0.2 K/uL RDW Standard Deviation 39.2 40.5 36.4-46.3 fL RDW Coefficient of Variation 13.2 13.5 11.5-14.5 % Immature Granulocyte % (Auto) 0.8 % Immature Granulocyte # (Auto) 0.04 0.00-0.02 K/uL Sodium Level 148 148 136-145 mmol/L Potassium Level 3.0 3.1 3.5-5.1 mmol/L Chloride Level 112 112 98-107 mmol/L Carbon Dioxide Level 24 26 21-32 mmol/L Anion Gap 12.0 10.0 3-11 mmol/L Blood Urea Nitrogen 17 17 7-18 mg/dl Creatinine 0.67 0.56 0.60-1.40 mg/dl Est Creatinine Clear Calc Drug Dose 173.6 207.6 ml/min Estimated GFR () 140.3 > 150.0 Estimated GFR (Non- 121.0 130.3 BUN/Creatinine Ratio 25.5 30.0 10-20 Random Glucose 91 83 70-99 mg/dl Calcium Level 9.6 8.6 8.5-10.1 mg/dl Total Bilirubin 0.8 0.2-1 mg/dl Aspartate Amino Transf (AST/SGOT) 36 15-37 U/L Alanine Aminotransferase (ALT/SGPT) 67 12-78 U/L Alkaline Phosphatase 128 45-117 U/L Total Protein 8.5 6.4-8.2 gm/dl Albumin 4.8 3.4-5.0 gm/dl Globulin 3.7 2.5-4.0 gm/dl Albumin/Globulin Ratio 1.3 0.9-2 Lipase 158 73-393 U/L Lactic Acid Level 0.7 0.4-2.0 mmol/L Magnesium Level 2.3 1.8-2.4 mg/dl Microbiology Results URINE CULTURE Final 08/29/16 Organism 1 ENTEROBACTER AEROGENES COLONY COUNT >100,000 CFU/ml SENS SENSITIVITY TO FOLLOW Organism 2 ENTEROBACTER AEROGENES#2 COLONY COUNT 50,000 CFU/ml SENS NO SENSITIVITY TO FOLLOW IDENTIFICATION AND SUSCEPTIBILITY TESTING HAVE CONFIRMED THE TWO ORGANISMS PREVIOUSLY REPORTED ARE THE SAME ORGANISM. NO SUSCEPTIBILITY RESULTS WILL BE GENERATED ON THE SECOND ISOLATE. 1. ENTEROBACTER AEROGENES Target Route Dose RX AB Cost M.I.C. IQ ------ ----- ------ -- ------ -------- - ------ TRIMET/SULFA S <=2/38 CEFOTAXIME S <=2 CEFTRIAXONE S <=1 CEFEPIME S <=4 IMIPENEM S <=1 GENTAMICIN S <=4 TOBRAMYCIN S <=4 AMIKACIN S <=16 CIPROFLOXACIN S <=1 LEVOFLOXACIN S <=2 ERTAPENEM S <=1 NITROFURANTOIN R >64 PIP/TAZO S <=16 S = SENSITIVE I = INTERMEDIATE R = RESISTANT Medical Emergencies . Who to Call and When: Medical Emergencies: If at any time you feel your situation is an emergency, please call 911 immediately. . Non-Emergent Contact Non-Emergency issues call your: Primary Care Provider Call Non-Emergent contact if: you have a fever, your pain is not controlled, you have any medication questions . . "Provider Documentation" section prepared by Enrique Thomason. VTE Core Measure Inpt VTE Proph given/why not?: SCD's
[2016-08-29 10:34] VITALS: BP 152/88; PULSE 75; TEMP 36.6; O2SAT 98
--- NOTE | 2016-08-29 10:50 | Discharge Summary ---
Discharge Summary Admission Date: Aug 28, 2016 at 20:03 Discharge Date: Aug 29, 2016 Discharge Disposition: Home Principal Diagnosis: UTI Immunizations: Have You Had Influenza Vaccine: No History of Tetanus Vaccine?: Yes History of Pneumococcal: No History of Hepatitis B Vaccine: No Hepatitis Immunization Date: Apr 08, 1999 Procedures: Last 24 Hours Test 08/28/16 20:51 08/29/16 07:34 White Blood Count 5.22 K/uL 5.64 K/uL Red Blood Count 5.66 M/uL 5.01 M/uL Hemoglobin 16.1 g/dL 14.0 g/dL Hematocrit 46.1 % 41.7 % Mean Corpuscular Volume 81.4 fL 83.2 fL Mean Corpuscular Hemoglobin 28.4 pg 27.9 pg Mean Corpuscular Hemoglobin Concent 34.9 g/dl 33.6 g/dl Platelet Count 308 K/uL 253 K/uL Mean Platelet Volume 9.1 fL 9.1 fL Neutrophils (%) (Auto) 57.8 % Lymphocytes (%) (Auto) 33.7 % Monocytes (%) (Auto) 7.5 % Eosinophils (%) (Auto) 0.0 % Basophils (%) (Auto) 0.2 % Neutrophils # (Auto) 3.02 K/uL Lymphocytes # (Auto) 1.76 K/uL Monocytes # (Auto) 0.39 K/uL Eosinophils # (Auto) 0.00 K/uL Basophils # (Auto) 0.01 K/uL RDW Standard Deviation 39.2 fL 40.5 fL RDW Coefficient of Variation 13.2 % 13.5 % Immature Granulocyte % (Auto) 0.8 % Immature Granulocyte # (Auto) 0.04 K/uL Sodium Level 148 mmol/L 148 mmol/L Potassium Level 3.0 mmol/L 3.1 mmol/L Chloride Level 112 mmol/L 112 mmol/L Carbon Dioxide Level 24 mmol/L 26 mmol/L Anion Gap 12.0 mmol/L 10.0 mmol/L Blood Urea Nitrogen 17 mg/dl 17 mg/dl Creatinine 0.67 mg/dl 0.56 mg/dl Est Creatinine Clear Calc Drug Dose 173.6 ml/min 207.6 ml/min Estimated GFR () 140.3 > 150.0 Estimated GFR (Non- 121.0 130.3 BUN/Creatinine Ratio 25.5 30.0 Random Glucose 91 mg/dl 83 mg/dl Calcium Level 9.6 mg/dl 8.6 mg/dl Total Bilirubin 0.8 mg/dl Aspartate Amino Transf (AST/SGOT) 36 U/L Alanine Aminotransferase (ALT/SGPT) 67 U/L Alkaline Phosphatase 128 U/L Total Protein 8.5 gm/dl Albumin 4.8 gm/dl Globulin 3.7 gm/dl Albumin/Globulin Ratio 1.3 Lipase 158 U/L Lactic Acid Level 0.7 mmol/L Magnesium Level 2.3 mg/dl URINE CULTURE Final 08/29/16 Organism 1 ENTEROBACTER AEROGENES COLONY COUNT >100,000 CFU/ml SENS SENSITIVITY TO FOLLOW Organism 2 ENTEROBACTER AEROGENES#2 COLONY COUNT 50,000 CFU/ml SENS NO SENSITIVITY TO FOLLOW IDENTIFICATION AND SUSCEPTIBILITY TESTING HAVE CONFIRMED THE TWO ORGANISMS PREVIOUSLY REPORTED ARE THE SAME ORGANISM. NO SUSCEPTIBILITY RESULTS WILL BE GENERATED ON THE SECOND ISOLATE. 1. ENTEROBACTER AEROGENES Target Route Dose RX AB Cost M.I.C. IQ ------ ----- ------ -- ------ -------- - ------ TRIMET/SULFA S <=2/38 CEFOTAXIME S <=2 CEFTRIAXONE S <=1 CEFEPIME S <=4 IMIPENEM S <=1 GENTAMICIN S <=4 TOBRAMYCIN S <=4 AMIKACIN S <=16 CIPROFLOXACIN S <=1 LEVOFLOXACIN S <=2 ERTAPENEM S <=1 NITROFURANTOIN R >64 PIP/TAZO S <=16 S = SENSITIVE I = INTERMEDIATE R = RESISTANT CT SCAN OF THE ABDOMEN AND PELVIS WITHOUT IV CONTRAST CLINICAL HISTORY: Flank pain and hematuria. COMPARISON STUDY: Abdominal CT dated 06/03/2015. TECHNIQUE: CT scan of the abdomen and pelvis is performed from the lung bases to the proximal femora. Images are reviewed in the axial, sagittal, and coronal planes. IV contrast was not administered for this examination. Automated dose control exposure was utilized. The examination is significantly degraded by metallic streak artifact from extensive orthopedic spinal hardware as well as an electronic device along the right abdominal pannus. CT DOSE: 1476.04 mGy.cm FINDINGS: Lung bases: The heart is normal in size and without pericardial effusion. The lung bases are clear noting bibasilar atelectasis. Liver: Evaluation of the liver is degraded by streak artifact. The unenhanced liver is normal in size, contour, and attenuation. There is no intrahepatic biliary ductal dilatation. Gallbladder: Calcified gallstones are identified. The gallbladder is otherwise normal in appearance. Spleen: Normal in size and attenuation. Pancreas: Unremarkable. Adrenal glands: Unremarkable. Kidneys: The unenhanced kidneys demonstrate cortical atrophy and are without hydronephrosis. There is a 9 mm calculus in the right renal pelvis. No left renal calculi are identified. Foci of cortical scarring are present in the upper pole of the right kidney. There is no evidence of contour deforming renal mass lesion. Abdominal vasculature: The abdominal aorta is normal in course and caliber. Bowel: A small bowel anastomosis is noted in the right lower quadrant. There is laxity of the ventral abdominal wall with a small bowel containing hernia. No bowel obstruction is seen. The appendix is well-visualized and normal. Peritoneum: There is no intraperitoneal free air or abdominal ascites. There is a fat-containing umbilical hernia. A neurostimulator device is present within the right lower quadrant abdominal pannus. Leads extend into the thoracic spinal canal posteriorly. There is marked fatty atrophy of the paraspinal, iliopsoas, and pelvic musculature. Lymphadenopathy: None. Pelvic viscera: The bladder wall appears irregular and demonstrates submucosal fat deposition. The prostate gland is diminutive versus surgically absent. The seminal vesicles are normal as imaged. Skeletal structures: The skeletal structures are osteopenic. There is chronic deformity of the hips and bony pelvis. Postoperative changes partially visualized in the right femur. There are postoperative changes from T11 -L3 spinal fusion. No lytic or blastic lesions are seen. IMPRESSION: 1. No acute infectious or inflammatory findings are identified in the abdomen or pelvis. 2. There is a 9 mm calculus in the right renal pelvis. No hydronephrosis is identified. 3. There is a small bowel containing ventral hernia. No bowel obstruction is seen. 4. Cholelithiasis without CT evidence of acute cholecystitis. 5. The bladder wall is abnormal in appearance and demonstrates submucosal fat deposition. This could be related to a chronic neurogenic bladder or possibly an ileal neobladder. Correlation with the patient's medical and surgical history be required. 6. Additional chronic findings as above. Medication Reconciliation New Medications: Cefpodoxime Proxetil (Cefpodoxime Proxetil) 200 Mg Tab 1 TAB PO BID for 10 Days, #20 TAB Continued Medications: Gabapentin (Gabapentin) 800 Mg Tab 800 MG PO TID Ibuprofen Tab (Advil) 200 Mg Tab 400 MG PO DAILY, TAB Methenamine Hippurate (Methenamine Hippurate) 1 Gm Tab 1 GM PO BID Multiple Vitamin (Multivitamin) 1 Tab Tab 1 TAB PO DAILY Temazepam (Restoril) 30 Mg Cap 30 MG PO HS Discontinued Medications: Cephalexin Monohydrate (Keflex) 500 Mg Cap 500 MG PO QID for 10 Days, #40 CAP Discharge Exam Physical Exam: General Appearance: no apparent distress Neck: no JVD Respiratory/Chest: lungs clear, no respiratory distress Cardiovascular: regular rate, rhythm, no murmur Abdomen / GI: normal bowel sounds, non tender, soft Extremities: no pedal edema Neurologic/Psychiatric: alert, oriented x 3 Skin: warm/dry Hospital Course Mr. 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 He's has had recurrent urinary tract infections in the past and is on suppressive therapy with methenamine hippurate. His last UTI was a year ago. He presented to the ED on 08/27/2016 complaining of fever and flank pain. His urinalysis was consistent with infection. He was started on antibiotics, was feeling better, and was discharged home on cephalexin. He returned the next day complaining of nausea, vomiting, and persistent fever. He was started empiric cefepime and admitted. Overnight, he reports feeling much better. He is now tolerating a diet and has remained afebrile during his stay. His urine culture collected in the ED on 08/27/2016 grew out Enterobacter which was resistant only to nitrofurantoin. At this point, he is being switched to PO cefpodoxime and being discharged home. I had a discussion with him regarding aseptic technique while catheterizing himself, including using a new catheter each time as well as washing his hands and genitals prior to inserting the catheter, which he says he is already practicing. As part of his work up on his return visit to the ED, he underwent a CT scan of the abdomen and pelvis which revealed a 9mm stone in the right renal pelvis without any evidence for hydronephrosis or hydroureter. He has had kidney stones in the past and tells me he actually has an appointment with his urologist next week. I encouraged him to keep this appointment. Total Time Spent: Less than 30 minutes This includes examination of the patient, discharge planning, medication reconciliation, and communication with other providers. Discharge Instructions Please refer to the electronic Patient Visit Report (Discharge Instructions) for additional information. Follow-Up with PCP within one week. with urologist at next scheduled appointment, which he mentions is next week. Additional Copies To Oscar Martin M.D.
[2016-09-20] MEDS ORDERED: MULT-506 PO (10:32)
[2016-10-25] MEDS ORDERED: LEVO1TAB34 PO (09:57)
== END 2016-08-29 13:39 | disposition home or self-care (01) | DRG 690 ==
LOC: ENRESERVDT → ENRESERVTM → C.EDB 19:08 → C.MED 20:03
PROVIDERS: ADMIT Internal Medicine; ATTEND Hospitalist
DX: N12 Tubulo-interstitial nephritis, not specified as acute or chronic (principal); G82.20 Paraplegia, unspecified; S34.101S Unspecified injury to L1 level of lumbar spinal cord, sequela; X58.XXXS Exposure to other specified factors, sequela; N20.0 Calculus of kidney; N31.9 Neuromuscular dysfunction of bladder, unspecified; B95.2 Enterococcus as the cause of diseases classified elsewhere; Z16.39 Resistance to other specified antimicrobial drug; Z87.442 Personal history of urinary calculi; Z79.1 Long term (current) use of non-steroidal anti-inflammatories (NSAID); Z79.2 Long term (current) use of antibiotics; Z79.899 Other long term (current) drug therapy

== ENCOUNTER → 2016-09-07 | Outpatient (CLI) | payer OTHER ==
[~2016-09-07] MED LIST changes: +CEFD300C2 PO; -CEPH500C PO; +LEVO1TAB34 PO; +MULT-506 PO; +TEMA30CA4 PO
[2016-09-07 17:24] LABS: BASO % 0.3 %; BASO ABS # 0.02 K/uL (0-0.2); COMPLETE YES; EOS % 1.7 %; HEMATOCRIT 41.3 % (42-52); IG% 0.3 %; LYMPH % 36.9 %; LYMPH ABS # 2.32 K/uL (1.2-3.4); MEAN CELL VOLUME 81.9 fL (80-100); MEAN CORPUSCULAR HEMOGLOBIN 28.4 pg (25-34); MEAN CORPUSCULAR HGB CONC 34.6 g/dl (32-36); MEAN PLATELET VOLUME 10.4 fL (7.4-10.4); MONO % 6.5 %; NEUT % 54.3 %; PLATELET COUNT 226 K/uL (130-400); RED BLOOD COUNT 5.04 M/uL (4.7-6.1); WHITE BLOOD COUNT 6.29 K/uL (4.8-10.8)
[2016-09-07 17:42] LABS: BLOOD UREA NITROGEN 11 mg/dl (7-18); BUN/CREATININE RATIO 17.7 (10-20); CALCIUM 9.3 mg/dl (8.5-10.1); CARBON DIOXIDE 30 mmol/L (21-32); CHLORIDE 103 mmol/L (98-107); CREATININE 0.62 mg/dl (0.60-1.40); GLUCOSE 88 mg/dl (70-99); POTASSIUM 3.1 mmol/L (3.5-5.1); SODIUM 141 mmol/L (136-145)
[2016-09-07 17:45] LABS: ALB/GLOB RATIO 1.3 (0.9-2); ALKALINE PHOSPHATASE 112 U/L (45-117); ALT/SGPT 55 U/L (12-78); AST/SGOT 22 U/L (15-37)
== END | disposition home or self-care (01) ==
LOC: C.LAB 16:14
PROVIDERS: ATTEND Anesthesiology
DX: F41.9 Anxiety disorder, unspecified (principal); R41.9 Unspecified symptoms and signs involving cognitive functions and awareness; R50.81 Fever presenting with conditions classified elsewhere; R82.90 Unspecified abnormal findings in urine; G57.83 Other specified mononeuropathies of bilateral lower limbs; S24.13 Anterior cord syndrome of thoracic spinal cord; X58.XXXS Exposure to other specified factors, sequela; M62.838 Other muscle spasm; G82.22 Paraplegia, incomplete

== ENCOUNTER → 2016-09-13 | Outpatient (CLI) | payer OTHER ==
--- NOTE | 2016-09-13 10:39 | DIAGNOSTIC IMAGING REPORT ---
KUB HISTORY: N20.0 [id number] COMPARISON: KUB 04/30/2014. Abdomen and pelvis CT 08/28/2016. FINDINGS: Posterior decompression fusion from T11 through L3 with pedicle screws and rods. There is a intrathecal catheter with the tip terminating at the superior endplate of the T9 level. Stable 9 mm stone within the right renal pelvis. No left renal or ureteral calculi identified. Moderate well-formed stool seen within the colon. There are few punctate calcifications in the deep pelvis which likely represent phleboliths. Lower pelvic/hip deformities are again noted. No pneumoperitoneum or pneumatosis. IMPRESSION: Stable right-sided nephrolithiasis. Electronically signed by: Pedro Mcclure M.D. 09/13/2016 10:38 AM Dictated Date/Time: 09/13/2016 10:35 AM
== END | disposition home or self-care (01) ==
LOC: C.RAD 10:02
PROVIDERS: ATTEND Urology
DX: N20.0 Calculus of kidney (principal)

== ENCOUNTER → 2016-09-28 | Day surgery (SDC) | payer OTHER ==
--- NOTE | 2016-09-18 11:56 | DIAGNOSTIC IMAGING REPORT ---
CHEST 2 VIEWS ROUTINE CLINICAL HISTORY: Preoperative evaluation. Nephrolithiasis. COMPARISON STUDY: Chest radiograph July 07, 2015. FINDINGS: Spinal fusion hardware is partially imaged. Linear left basilar opacity is suggestive of atelectasis. There is no evidence of pulmonary edema. No consolidation is present. Cardiac size is normal. Mediastinal contours are normal. The appearance of the chest is unchanged. IMPRESSION: No acute cardiopulmonary findings. Electronically signed by: Taye Metz M.D. 09/18/2016 11:55 AM Dictated Date/Time: 09/18/2016 11:54 AM
[2016-09-20 10:32] VITALS: Ht 177.8 cm; Wt 95.5 kg
[~2016-09-28] VITALS: Ht 177.8 cm; Wt 95.5 kg
[~2016-09-28] MED LIST changes: +LACTATED RINGER'S 1000ML 1,000 ML IV SCH; +LEVOFLOXACIN / D5W 500 MG IV SCH; +LEVOFLOXACIN 500MG / D5W IV SCH; +METH-1305 PO; -METH1TAB5 PO; -MULTTAB58 PO
== END | disposition home or self-care (01) ==
LOC: EDSTATUS 08:30 → C.PAT 13:32
PROVIDERS: ATTEND Urology
DX: Z01.818 Encounter for other preprocedural examination (principal)

== ENCOUNTER → 2016-10-16 | Outpatient (CLI) | payer OTHER ==
[~2016-10-16] MED LIST changes: -LACTATED RINGER'S 1000ML 1,000 ML IV SCH; -LEVOFLOXACIN / D5W 500 MG IV SCH; -LEVOFLOXACIN 500MG / D5W IV SCH; -METH-1305 PO; +METH1TAB5 PO
[2016-10-16 13:15] LABS: BASO % 0.5 %; BASO ABS # 0.02 K/uL (0-0.2); COMPLETE YES; EOS % 4.4 %; IG% 0.5 %; LYMPH % 41.5 %; MEAN CELL VOLUME 81.3 fL (80-100); MEAN CORPUSCULAR HGB CONC 34.5 g/dl (32-36); MEAN PLATELET VOLUME 9.2 fL (7.4-10.4); MONO % 7.8 %; NEUT % 45.3 %; PLATELET COUNT 217 K/uL (130-400); RED BLOOD COUNT 4.92 M/uL (4.7-6.1); WHITE BLOOD COUNT 3.86 K/uL (4.8-10.8)
[2016-10-16 14:52] LABS: BLOOD UREA NITROGEN 12 mg/dl (7-18); BUN/CREATININE RATIO 20.8 (10-20); CALCIUM 9.3 mg/dl (8.5-10.1); CARBON DIOXIDE 33 mmol/L (21-32); CHLORIDE 105 mmol/L (98-107); CREATININE 0.59 mg/dl (0.60-1.40); GLUCOSE 91 mg/dl (70-99); POTASSIUM 3.8 mmol/L (3.5-5.1); SODIUM 141 mmol/L (136-145)
== END | disposition home or self-care (01) ==
LOC: C.LAB 12:23
PROVIDERS: ATTEND Urology
DX: N20.0 Calculus of kidney (principal); N39.0 Urinary tract infection, site not specified

== ENCOUNTER → 2016-10-25 | Day surgery (SDC) | payer OTHER ==
[~2016-10-25] VITALS: Ht 177.8 cm; Wt 95.5 kg
[~2016-10-25] MED LIST changes: +ATROPINE SULFATE 0.1 MG/ML 5ML SYR IV PRN; +CONRAY 30% 150ML BOTTLE ONE; +DEXAMETHASONE SOD INJ 4 MG/ML VIAL ONE; +ESMOLOL HCL 10 MG/ML 10 ML VIAL ONE; +EpHEDrine SULFATE INJ 50 MG/ML AMP IV PRN; +FENTANYL CITRATE INJ 50 MCG/1 ML 2 ML VIAL IV PRN; +FENTANYL CITRATE INJ 50 MCG/1 ML 2 ML VIAL ONE; +GENTAMICIN INJ 240 MG in DEXTROSE 5% 100ML 100 ML IV ONE; +LACTATED RINGER'S 1000ML 1,000 ML IV SCH; +LIDOCAINE HCL 2% 2 ML VIAL (20MG/ML) ONE; +METH-1305 PO; -METH1TAB5 PO; +MIDAZOLAM HCL 1 MG/ML 2ML VIAL ONE; +ONDANSETRON INJ 2 MG/ML 2 ML VIAL IV PRN; +ONDANSETRON INJ 2 MG/ML 2 ML VIAL ONE; +PROPOFOL IV EMULSION 10 MG/ML 20 ML VIAL IV ONE
[2016-10-25 05:50] VITALS: BP 140/91; PULSE 108; TEMP 36.5; O2SAT 96; Ht 177.8 cm; Wt 95.5 kg
--- NOTE | 2016-10-25 07:12 | History & Physical Bridge Note ---
H&P Re-Evaluation Bridge Note: I have examined the patient, reviewed the History & Physical and in the interval since the performance of the History & Physical I have noted the following changes of clinical significance: No changes noted
--- NOTE | 2016-10-25 09:43 | DIAGNOSTIC IMAGING REPORT ---
INTRAOPERATIVE RADIOGRAPHS CLINICAL HISTORY: Right ureteral stent placement. Fluoroscopy time: 240 seconds. FINDINGS: 2 spot fluoroscopic views of the right abdomen are correlated with abdominal CT dated 08/28/2016. Both provided images show the proximal and distal ends of a right ureteral stent being deployed. No calcifications are clearly seen along the course of the stent. Extensive thoracolumbar spinal fusion hardware is observed. IMPRESSION: Intraoperative images show a right ureteral stent being placed. See operative report for detailed findings. Electronically signed by: Tito Hope M.D. 10/25/2016 9:42 AM Dictated Date/Time: 10/25/2016 9:40 AM
--- NOTE | 2016-10-25 09:55 | [facility] Post Operative Brief Note ---
Immediate Operative Summary Operative Date Oct 25, 2016. Pre-Operative Diagnosis Right Renal Stone Post-Operative Diagnosis Right Renal Stone Procedure(s) Performed Cystoscopy, Right Ureteroscopy, Laser Lithotripsy, Right Ureteral Stent Placement, Balloon dilation of mid ureteral stricture Surgeon Dr. Purdy General Office Worker Surgeon(s) none Estimated Blood Loss 10 cc Findings 1 cm renal stone mid ureteral stricture Specimens none Drains 5 by 26 ferreira Anesthesia general Disposition Recovery Room / PACU
--- NOTE | 2016-10-25 10:00 | Discharge Instructions ---
Discharge Instructions Date of Service Oct 25, 2016. Visit Reason for Visit: Stones Discharge Discharge Diagnosis / Problem: r renal stone Discharge Goals Goal(s): Decrease discomfort, Increase independence, Improve disease control Activity Recommendations Activity Limitations: resume your previous activity Anesthesia . Post Anesthesia Instructions: If you have had General Anesthesia or IV Sedation: * Do not drive today. * Resume driving when surgeon permits. * Do not make important decisions or sign legal documents today. * Call surgeon for: 1. Temperature elevations greater than 101 degrees F. 2. Uncontrollable pain. 3. Excessive bleeding. 4. Persistent nausea and vomiting. 5. Medication intolerance (nausea, vomiting or rash). * For nausea and vomiting use only clear liquids such as: tea, soda, bouillon until nausea subsides, then gradually increase diet as tolerated. * If you have any concerns or questions, call your surgeon's office. If physician is unavailable and it is an emergency, call 911 or go to the nearest emergency room. . Diet Recommendations Recommended Home Diet: no limitations Procedures Procedures Performed: Cystoscopy, Right Ureteroscopy, Laser Lithotripsy, Right Ureteral Stent Placement, Balloon dilation of mid ureteral stricture Pending Studies Studies pending at discharge: yes (kub) List of pending studies: kub Medical Emergencies . Who to Call and When: Medical Emergencies: If at any time you feel your situation is an emergency, please call 911 immediately. . Non-Emergent Contact Non-Emergency issues call your: Urologist Call Non-Emergent contact if: temperature is above 101 . . "Provider Documentation" section prepared by Sigifredo Purdy.
[2016-10-25 10:45] VITALS: BP 125/72; PULSE 86; TEMP 36.4; O2SAT 98
--- NOTE | 2016-10-25 10:48 | Anesthesiology Progress Note ---
Anesthesia Post Op Note Date & Time Oct 25, 2016 at 10:48 Vital Signs Pain Intensity: 0 Vital Signs Past 12 Hours Date Time Temp Pulse Resp B/P Pulse Ox O2 Delivery O2 Flow Rate FiO2 10/25/16 10:20 36.4 71 18 116/75 96 Room Air 10/25/16 10:10 71 15 125/70 94 Room Air 10/25/16 10:00 85 20 143/96 95 Room Air 10/25/16 09:50 86 17 143/90 100 Mask 10 10/25/16 09:40 36.1 77 19 143/89 100 Mask 10 10/25/16 05:50 36.5 108 20 140/91 96 Room Air Notes Mental Status: alert / awake / arousable, participated in evaluation Pt Amnestic to Procedure: Yes Nausea / Vomiting: adequately controlled Pain: adequately controlled Airway Patency, RR, SpO2: stable & adequate BP & HR: stable & adequate Hydration State: stable & adequate Anesthetic Complications: no major complications apparent
--- NOTE | 2016-10-25 11:02 | DIAGNOSTIC IMAGING REPORT ---
KUB CLINICAL HISTORY: Right ureteral stent placement. FINDINGS: 2 AP, portable, supine abdominal radiographs are compared to study dated 09/13/2016 and correlated with abdominal CT dated 08/28/2016. There is a nonobstructed abdominal bowel gas pattern noting moderate colonic fecal retention. A right ureteral stent is new from previous. No calcifications are identified along the course of the stent. No calcifications are clearly seen projecting over either kidney. The renal shadows are largely obscured by overlying colonic contents. Small pelvic phleboliths are identified. The skeletal structures are osteopenic. Extensive lumbosacral fusion hardware is noted. Postoperative change is partially visualized in the right proximal femur. IMPRESSION: 1. A right ureteral stent is new from previous. No calcifications are seen on the course of the stent. 2. No calculi are identified projecting over either kidney. Electronically signed by: Tito Hope M.D. 10/25/2016 11:00 AM Dictated Date/Time: 10/25/2016 10:59 AM
[2016-10-25 11:15] VITALS: BP 123/71; PULSE 66; TEMP 37.1; O2SAT 98
[2016-10-25 11:45] VITALS: BP 126/72; PULSE 97; O2SAT 99
[2016-10-25 12:45] VITALS: BP 111/80; PULSE 100; TEMP 37; O2SAT 97
--- NOTE | 2016-10-25 18:24 | OPERATIVE REPORT ---
DATE OF OPERATION: 10/25/2016 PREOPERATIVE DIAGNOSIS: Right renal stone. POSTOPERATIVE DIAGNOSIS: Same. PROCEDURES PERFORMED: Right ureteroscopy, balloon dilation of proximal ureteral stricture, right laser lithotripsy and right stent. HISTORY OF PRESENTATION: The patient is a 41-year-old male, he is a paraplegic, who has been diagnosed with a right stone that is causing intermittent pain. The patient had an infection that required him to be hospitalized previously. Has multiple drug allergies, which makes treating him for infection difficult. He was scheduled for ESWL but because he has a pain pump on his right side, the same side as the stone, there was a contraindication to doing ESWL. Because of this, we discussed ureteroscopy as the best remaining alternative. ANESTHESIA: General. SURGEON: Dr. Purdy. DESCRIPTION OF THE PROCEDURE: The patient was taken to the operating room with Venodyne stockings. He was given gentamicin preoperatively and he had received Levaquin during the week previously. He was placed in dorsal lithotomy position after general anesthesia was given and prepped and draped in the usual sterile fashion. First, a 17-[place] cystoscope was passed as he does do intermittent catheterization. There was a stricture and I could not pass the 21 which I attempted earlier, so I dilated him gently with the 17 and then passed the 21-[place] scope with some difficulty. Once inside the bladder, I examined the bladder, he had an augmentation. No tumors or abnormalities were seen. The right ureteral orifice was seen. A retrograde was performed and there did not appear to be any obstruction. A dual flex guidewire was then passed and I did a balloon dilation of the distal ureter with a 4 cm 15 atmosphere balloon to expedite passage of the flexible ureteroscope. I then passed the second dual flex guidewire, leaving the first as a safety wire and removed the cystoscope. I then attempted to pass the flexible ureteroscope which went up to the iliac vessels, but was unable to pass the scope beyond this area. There appeared to be a narrowing after removing the wire there. I passed a Passport balloon dilator there, dilated this for 1 minute in this area and then removed this, replaced the wire through the scope and then was able to pass the scope beyond this up into the renal pelvis. There, I removed the wire and the stone was visible. It was in the upper pole yoon. I was able to fragment the stone into multiple small pieces using a power initially of 0.6 and then up to 1 with 6 reps. After fragmenting into 6-7 pieces, I then used the popcorn method and increasing the rate to 15 and made the pieces smaller and there were multiple small fragments left in the yoon, but no large fragments were seen. I then removed the scope and placed a 5-[place] 26 cm stent. The patient had a Can catheter then placed and was transferred to the recovery room in stable condition. I attest to the content of the Intraoperative Record and any orders documented therein. Any exceptio ns are noted below.
== END | disposition home or self-care (01) ==
LOC: C.ACU 04:55
PROVIDERS: ATTEND Urology
DX: N20.0 Calculus of kidney (principal); N13.5 Crossing vessel and stricture of ureter without hydronephrosis; N39.0 Urinary tract infection, site not specified; M19.90 Unspecified osteoarthritis, unspecified site; E78.5 Hyperlipidemia, unspecified; E78.1 Pure hyperglyceridemia; G47.39 Other sleep apnea; N31.9 Neuromuscular dysfunction of bladder, unspecified; M85.80 Other specified disorders of bone density and structure, unspecified site; R35.0 Frequency of micturition

== ENCOUNTER → 2016-11-06 | Outpatient (CLI) | payer OTHER ==
[~2016-11-06] MED LIST changes: -ATROPINE SULFATE 0.1 MG/ML 5ML SYR IV PRN; -CONRAY 30% 150ML BOTTLE ONE; -DEXAMETHASONE SOD INJ 4 MG/ML VIAL ONE; -ESMOLOL HCL 10 MG/ML 10 ML VIAL ONE; -EpHEDrine SULFATE INJ 50 MG/ML AMP IV PRN; -FENTANYL CITRATE INJ 50 MCG/1 ML 2 ML VIAL IV PRN; -FENTANYL CITRATE INJ 50 MCG/1 ML 2 ML VIAL ONE; -GENTAMICIN INJ 240 MG in DEXTROSE 5% 100ML 100 ML IV ONE; -LACTATED RINGER'S 1000ML 1,000 ML IV SCH; -LEVO1TAB34 PO; -LIDOCAINE HCL 2% 2 ML VIAL (20MG/ML) ONE; -MIDAZOLAM HCL 1 MG/ML 2ML VIAL ONE; -ONDANSETRON INJ 2 MG/ML 2 ML VIAL IV PRN; -ONDANSETRON INJ 2 MG/ML 2 ML VIAL ONE; -PROPOFOL IV EMULSION 10 MG/ML 20 ML VIAL IV ONE
== END | disposition home or self-care (01) ==
LOC: C.LABSPEC 17:28
PROVIDERS: ATTEND Urology
DX: N20.0 Calculus of kidney (principal)

== ENCOUNTER → 2016-11-06 | Outpatient (CLI) | payer OTHER ==
--- NOTE | 2016-11-06 13:58 | DIAGNOSTIC IMAGING REPORT ---
KUB CLINICAL HISTORY: N20.0 [id number] nephrocalcinosis COMPARISON STUDY: 10/25/2016 FINDINGS: Right ureteral stent in good position. This is unchanged from the prior exam. No significant nephrocalcinosis. Multiple pelvic vascular calcifications. Postoperative changes of the thoracolumbar spine considered stable. IMPRESSION: Right ureteral stent in good position. No significant urinary tract calcifications. No change from the prior study. Electronically signed by: Teo Moeller M.D. 11/06/2016 1:56 PM Dictated Date/Time: 11/06/2016 1:54 PM
== END | disposition home or self-care (01) ==
LOC: C.RAD 13:14
PROVIDERS: ATTEND Urology
DX: N20.0 Calculus of kidney (principal)

== ENCOUNTER → 2016-12-05 | Outpatient (CLI) | payer OTHER ==
--- NOTE | 2016-12-05 11:01 | DIAGNOSTIC IMAGING REPORT ---
KUB CLINICAL HISTORY: Nephrolithiasis. COMPARISON STUDY: KUB November 06, 2016. FINDINGS: A thoracolumbar spine fusion is noted. An intrathecal catheter is in place. Bowel gas pattern is normal. Pelvic calcifications are unchanged. No ureteral calculi are identified. The right ureteral stent has been removed. A suspected 4 mm right renal calculus is noted. No left renal calculi are identified. There may be smaller right renal calculi. IMPRESSION: 1. Suspected right-sided nephrolithiasis. No ureteral calculi identified. 2. Interval removal of right ureteral stent. Electronically signed by: Taye Metz M.D. 12/05/2016 11:00 AM Dictated Date/Time: 12/05/2016 10:57 AM
== END | disposition home or self-care (01) ==
LOC: C.RAD 10:15
PROVIDERS: ATTEND Urology
DX: N20.0 Calculus of kidney (principal)

== ENCOUNTER 2017-05-01 09:56 | Emergency (ER) | payer OTHER ==
[~2017-05-01] VITALS: Ht 177.8 cm; Wt 97.0 kg
[~2017-05-01 09:56] MED LIST changes: -CEFD300C2 PO; -IBUP-103 PO; -METH-1305 PO; +METH1TAB5 PO
[2017-05-01 10:02] VITALS: TEMP 36.4; Ht 177.8 cm; Wt 97.0 kg
[2017-05-01] MEDS ORDERED: ONDANSETRON INJ 2 MG/ML 2 ML VIAL IV STA (10:12)
[2017-05-01] MEDS ORDERED: SODIUM CHLORIDE 0.9% 1000ML 500 ML IV ONE (10:12)
[2017-05-01 10:48] LABS: HEMATOCRIT 40.8 % (42-52); MEAN CELL VOLUME 82.3 fL (80-100); MEAN CORPUSCULAR HGB CONC 34.1 g/dl (32-36); PLATELET COUNT 203 K/uL (130-400); RED BLOOD COUNT 4.96 M/uL (4.7-6.1); WHITE BLOOD COUNT 4.75 K/uL (4.8-10.8)
[2017-05-01 10:52] LABS: MANUAL MICROSCOPIC REQUIRED? YES; URINE APPEARANCE TURBID (CLEAR); URINE BILIRUBIN NEG (NEG); URINE COLOR YELLOW; URINE NITRITE NEG (NEG); URINE SPECIFIC GRAVITY 1.025 (1.000-1.030); UROBILINOGEN NEG (NEG)
[2017-05-01 10:53] LABS: REVIEW REQ? NO
[2017-05-01] MEDS ORDERED: MoRPHine SULFATE 4 MG/ML 1 ML CARP\\VIAL IV STA (10:53)
[2017-05-01 10:58] LABS: URINE WBC >30 /hpf (0-5)
[2017-05-01 11:01] LABS: URINE BACTERIA NEG (NEG); URINE MUCUS PRESENT (NONE PRSENT)
[2017-05-01 11:02] LABS: ZZURINE CULT IF INDIC CATH YES
[2017-05-01 11:06] LABS: BUN/CREATININE RATIO 31.9 (10-20); CALCIUM 9.2 mg/dl (8.5-10.1); CREATININE 0.59 mg/dl (0.60-1.40); POTASSIUM 3.4 mmol/L (3.5-5.1)
[2017-05-01 11:11] LABS: PROTHROMBIN TIME (PATIENT) 10.7 SECONDS (9.0-12.0)
[2017-05-01] MEDS ORDERED: IBUP-103 PO (11:16)
--- NOTE | 2017-05-01 11:46 | EMERGENCY ROOM VISIT NOTE ---
History First contact with patient: 10:47 Chief Complaint: URINARY SYMPTOMS Stated Complaint: BLADDER INFECTION, KIDNEY PAIN Nursing Triage Summary: PT c/o R kidney pain, known kidney stones, thinks he is getting an infection, pain worse today, blood in urine today. Pt states that he has a morphine pump, pain is 6/10 at this time which he says is tolerable. History of Present Illness The patient is a 41 year old male who presents to the Emergency Room via private vehicle accompanied by female with complaints of "bladder infection, kidney pain". The patient states that yesterday he developed spontaneous hematuria, followed by fevers. He notes additional right flank pain. Since then his symptoms have been worsening. He has a history of renal calculi as well as superimposed pyelonephritis. He also has stent placement from previous , locations. He notes that he is on a continuous morphine pump, but his pain is now persistent. He notes that he was sent here by Dr. Purdy, urologist. Review of Systems A complete 10-point Review of Systems was discussed with the patient, with pertinent positives and negatives listed in the History of Present Illness. All remaining Review of Systems questions can be considered negative unless otherwise specified. Past Medical/Surgical History Medical Problems: (1) Acute urinary tract infection (2) Kidney stone (3) Small bowel obstruction Family History Cancer Diabetes mellitus FH: heart disease Hypertension Social History Smoking Status: Never Smoker Alcohol Use: none Drug Use: none Marital Status: single Housing Status: lives alone Occupation Status: unemployed Current/Historical Medications Scheduled Cefdinir (Omnicef), 1 CAP PO BID Gabapentin (Gabapentin), 800 MG PO TID Methenamine Hippurate (Methenamine Hippurate), 1 GM PO BID Multivitamin (Multivitamin), 1 TAB PO BID Temazepam (Restoril), 30 MG PO HS Miscellaneous Medications Ibuprofen Tab (Advil), 200 MG PO Physical Exam Vital Signs Date Time Temp Pulse Resp B/P (MAP) Pulse Ox O2 Delivery O2 Flow Rate FiO2 05/01/17 13:23 78 20 160/116 96 05/01/17 11:53 89 18 123/90 98 Room Air 05/01/17 10:02 36.4 85 16 146/94 96 Room Air Physical Exam VITAL SIGNS - Vital signs and nursing notes were reviewed. Stable. GENERAL - 41-year-old male appearing his stated age who is in no acute distress. Communicates well with provider and answers questions appropriately. SKIN - Without rashes. HEAD - NC/AT. EYES - Sclera anicteric. EARS - No deformities of external structures noted on gross examination bilaterally. NOSE - Midline and without cyanosis. No epistaxis or purulent drainage noted. MOUTH/OROPHARYNX - Without perioral cyanosis. NECK - Neck with FROM. Supple to palpation. No lymphadenopathy noted. No nuchal rigidity. LUNGS - Chest wall symmetric without accessory muscle use, intercostals retractions, or central cyanosis. Normal vesicular breath sounds CTA B/L. No wheezes, rales, or rhonchi appreciated. CARDIAC - RRR with S1/S2. No murmur, rubs, or gallops appreciated. ABDOMEN - Abdominal contour normal without pulsations or visible masses. BS normoactive all four quadrants. No tenderness, palpable masses, hepatosplenomegaly, or ascites noted. Right CVA tenderness. EXTREMITIES - No clubbing or peripheral cyanosis NEUROLOGIC - Cranial nerves II through XII grossly intact. PSYCH - A&O, and cooperates fully with examiner. Pt is very pleasant and interacts well with examiner. Medical Decision & Procedures ER Provider Diagnostic Interpretation: ABDOMEN AND PELVIS CT WITHOUT CONTRAST CT DOSE: 1037.58 mGycm HISTORY: Right flank pain, febrile, hematuria TECHNIQUE: Multiaxial CT images of the abdomen and pelvis were performed without the use of intravenous and oral contrast according to the standard department stone protocol. A dose lowering technique was utilized adhering to the principles of ALARA. COMPARISON STUDY: Abdomen and pelvis CT 08/28/2016. FINDINGS: Groundglass densities within the lung bases posteriorly favor mild dependent change. The bones are osteopenic. Posterior fusion within the thoracolumbar spine. There is an intrathecal catheter present. The tip terminates at the T9 level. Fat-containing ventral hernia persists. Diffuse muscle atrophy within the pelvis. Bladder deformity and submucosal fat deposition within the bladder remains unchanged. Tiny soft tissue extension extending from the cecum to the right side of the bladder best seen on image 373. This raises the possibility small fistula. However, there is no gas within the bladder lumen. A few colonic diverticula. No bowel wall thickening or obstruction. Normal appendix. Prior small bowel anastomosis within the right lower quadrant. The unenhanced liver, spleen, pancreas, and adrenal glands are unremarkable. Normal left kidney. Punctate stone within the right kidney. Scarring within the upper pole of the right kidney. Cholelithiasis. No bowel wall thickening or obstruction. IMPRESSION: 1. Right-sided nephrolithiasis. No ureteral stones. No hydronephrosis. 2. No significant change in the abnormal appearance of the bladder which could be due to postoperative changes. However, there is a tiny focus of soft tissue extending from right side of the bladder to the cecum. This raises the possibility of a fistula. There is no gas within the bladder lumen at this time. 3. No bowel wall thickening or obstruction. 4. Postoperative changes as described above. 5. Cholelithiasis. Electronically signed by: Pedro Mcclure M.D. 05/01/2017 11:53 AM Dictated Date/Time: 05/01/2017 11:44 AM Laboratory Results 05/01/17 10:34 Red Blood Count 4.96, Mean Corpuscular Volume 82.3, Mean Corpuscular Hemoglobin 28.0, Mean Corpuscular Hemoglobin Concent 34.1, Mean Platelet Volume 9.0, Neutrophils (%) (Auto) 39.0, Lymphocytes (%) (Auto) 46.2, Monocytes (%) (Auto) 8.3, Eosinophils (%) (Auto) 5.7, Basophils (%) (Auto) 0.4, Neutrophils # (Auto) 1.84, Lymphocytes # (Auto) 2.18, Monocytes # (Auto) 0.39, Eosinophils # (Auto) 0.27, Basophils # (Auto) 0.02 05/01/17 10:34 Test 05/01/17 10:25 05/01/17 10:34 05/01/17 10:53 05/01/17 11:35 Urine Color YELLOW Urine Appearance TURBID (CLEAR) Urine pH 6.0 (4.5-7.5) Urine Specific Coy 1.025 (1.000-1.030) Urine Protein 1+ (NEG) Urine Glucose (UA) NEG (NEG) Urine Ketones NEG (NEG) Urine Occult Blood 2+ (NEG) Urine Nitrite NEG (NEG) Urine Bilirubin NEG (NEG) Urine Urobilinogen NEG (NEG) Urine Leukocyte Esterase NEG (NEG) Urine RBC 5-10 /hpf (0-4) Urine WBC >30 /hpf (0-5) Urine Epithelial Cells 10-20 /lpf (0-5) Urine Calcium Oxalate Crystals PRESENT (NONE PRSENT) Urine Bacteria NEG (NEG) Urine Hyaline Casts 1-5 /lpf (0-5) Urine Mucus PRESENT (NONE PRSENT) White Blood Count 4.75 K/uL (4.8-10.8) Red Blood Count 4.96 M/uL (4.7-6.1) Hemoglobin 13.9 g/dL (14.0-18.0) Hematocrit 40.8 % (42-52) Mean Corpuscular Volume 82.3 fL (80-100) Mean Corpuscular Hemoglobin 28.0 pg (25-34) Mean Corpuscular Hemoglobin Concent 34.1 g/dl (32-36) Platelet Count 203 K/uL (130-400) Mean Platelet Volume 9.0 fL (7.4-10.4) Neutrophils (%) (Auto) 39.0 % Lymphocytes (%) (Auto) 46.2 % Monocytes (%) (Auto) 8.3 % Eosinophils (%) (Auto) 5.7 % Basophils (%) (Auto) 0.4 % Neutrophils # (Auto) 1.84 K/uL (1.4-6.5) Lymphocytes # (Auto) 2.18 K/uL (1.2-3.4) Monocytes # (Auto) 0.39 K/uL (0.11-0.59) Eosinophils # (Auto) 0.27 K/uL (0-0.5) Basophils # (Auto) 0.02 K/uL (0-0.2) RDW Standard Deviation 40.0 fL (36.4-46.3) RDW Coefficient of Variation 13.3 % (11.5-14.5) Immature Granulocyte % (Auto) 0.4 % Immature Granulocyte # (Auto) 0.02 K/uL (0.00-0.02) Nucleated RBC Absolute Count (auto) 0.00 K/uL (0-0) Nucleated Red Blood Cells % 0.0 % Anion Gap 5.0 mmol/L (3-11) Est Creatinine Clear Calc Drug Dose 196.4 ml/min Estimated GFR () 147.8 Estimated GFR (Non- 127.5 BUN/Creatinine Ratio 31.9 (10-20) Calcium Level 9.2 mg/dl (8.5-10.1) Prothrombin Time 10.7 SECONDS (9.0-12.0) Prothromb Time International Ratio 1.0 (0.9-1.1) Activated Partial Thromboplast Time 27.2 SECONDS (21.0-31.0) Partial Thromboplastin Ratio 1.0 Total Bilirubin 0.4 mg/dl (0.2-1) Direct Bilirubin 0.1 mg/dl (0-0.2) Aspartate Amino Transf (AST/SGOT) 37 U/L (15-37) Alanine Aminotransferase (ALT/SGPT) 76 U/L (12-78) Alkaline Phosphatase 137 U/L (45-117) Total Protein 7.0 gm/dl (6.4-8.2) Albumin 3.7 gm/dl (3.4-5.0) Lactic Acid Level 0.9 mmol/L (0.4-2.0) Medications Administered Medications (Trade) Dose Ordered Sig/Sky Route Start Time Stop Time Status Last Admin Dose Admin Sodium Chloride 500 ml @ 999 mls/hr Q31M ONCE IV 05/01/17 10:12 05/01/17 10:42 DC 05/01/17 11:00 999 MLS/HR Morphine Sulfate (MoRPHine SULFATE INJ) 4 mg NOW STAT IV 05/01/17 10:53 05/01/17 10:55 DC 05/01/17 11:03 4 MG Ceftriaxone Sodium (Rocephin Inj) 1 gm NOW STAT IV 05/01/17 12:33 05/01/17 12:34 DC 05/01/17 12:40 1 GM Medical Decision Patient was seen and evaluated as above. He presents to us today with right flank pain. Urinalysis reveals UTI evidence. CT was obtained of the abdomen and pelvis without intravenous contrast to rule out renal calculi or underlying pyelonephritis. Neither were visualized that would cause his symptoms today. There is a small concern for fistula, but I talk with the patient and he notes that he had 6 inches of the colon tacked onto the ladder about 20 years ago and notes that this is chronic. I do not believe that this is a pertinent finding. He is to follow-up with his urologist as well as family doctor regarding today 's visit. There is no concerning leukocytosis. White blood cell count of 4.7. Hemoglobin low at 13.9. Coags unremarkable. Metabolic workup reveals potassium slightly low at 3.4, and creatinine low at 0.59. Alkaline phosphatase is high at 137. At this time I believe he has a UTI, and believe he is stable for outpatient management. Case was discussed with the attending physician who also personally evaluated the patient. I discussed the patient's case with our pharmacist here to identify the best antibiotic given his prior history and very complex resistance pattern. He'll be given 1 g of Rocephin here followed by Omnicef 10 days at home. He is to return if worsening. He was educated upon management. He is to follow-up with Dr. Purdy his urologist as well as his family doctor by calling him later today to schedule follow-up. He was educated upon worrisome symptoms in which to return, had questions or discharge, and was discharged home in good condition. I do not suspect pyelonephritis, sepsis, or fistula. In evaluation treatment of this patient following differential diagnoses were entertained: Renal calculi, pyelonephritis, sepsis, among others. Impression Primary Impression: Symptoms of urinary tract infection Additional Impressions: Hypokalemia Anemia Departure Information Dispostion Home / Self-Care Condition GOOD Prescriptions Cefdinir (OMNICEF) 300 Mg Cap 1 CAP PO BID for 10 Days, #20 CAP Prov: Krish Pimentel PA-C 05/01/17 Referrals Oscar Martin M.D. (PCP) Patient Instructions My [facility] Additional Instructions You have been treated in the Emergency Department for a Urinary Tract Infection (UTI). You have been prescribed omnicef to be taken every 12 hours. PLEASE START TOMORROW, as you had an IV dose here. This is an antibiotic. All antibiotics have the potential to cause diarrhea. Stop this medication and contact a medical provider if you were to develop any significant adverse side effects including: wheezing, shortness of breath, passing out, vomiting, or a diffuse rash. Always take antibiotics as directed and COMPLETE the ENTIRE course regardless of the improvement of your symptoms. Return to the emergency department if your symptoms worsen despite treatment course outlined above. Drink plenty of water and stay well hydrated. As with any trip to the Emergency Department, you should follow-up with your Primary Care Provider and urologist from today's visit. Return to the emergency department if your symptoms persist despite treatment plan outlined above or if the following symptoms occur: increased fevers, chills , low back pain, nausea/vomiting, or blood in your urine. Problem Qualifiers
--- NOTE | 2017-05-01 11:55 | DIAGNOSTIC IMAGING REPORT ---
ABDOMEN AND PELVIS CT WITHOUT CONTRAST CT DOSE: 1037.58 mGycm HISTORY: Right flank pain, febrile, hematuria TECHNIQUE: Multiaxial CT images of the abdomen and pelvis were performed without the use of intravenous and oral contrast according to the standard department stone protocol. A dose lowering technique was utilized adhering to the principles of ALARA. COMPARISON STUDY: Abdomen and pelvis CT 08/28/2016. FINDINGS: Groundglass densities within the lung bases posteriorly favor mild dependent change. The bones are osteopenic. Posterior fusion within the thoracolumbar spine. There is an intrathecal catheter present. The tip terminates at the T9 level. Fat-containing ventral hernia persists. Diffuse muscle atrophy within the pelvis. Bladder deformity and submucosal fat deposition within the bladder remains unchanged. Tiny soft tissue extension extending from the cecum to the right side of the bladder best seen on image 373. This raises the possibility small fistula. However, there is no gas within the bladder lumen. A few colonic diverticula. No bowel wall thickening or obstruction. Normal appendix. Prior small bowel anastomosis within the right lower quadrant. The unenhanced liver, spleen, pancreas, and adrenal glands are unremarkable. Normal left kidney. Punctate stone within the right kidney. Scarring within the upper pole of the right kidney. Cholelithiasis. No bowel wall thickening or obstruction. IMPRESSION: 1. Right-sided nephrolithiasis. No ureteral stones. No hydronephrosis. 2. No significant change in the abnormal appearance of the bladder which could be due to postoperative changes. However, there is a tiny focus of soft tissue extending from right side of the bladder to the cecum. This raises the possibility of a fistula. There is no gas within the bladder lumen at this time. 3. No bowel wall thickening or obstruction. 4. Postoperative changes as described above. 5. Cholelithiasis. Electronically signed by: Pedro Mcclure M.D. 05/01/2017 11:53 AM Dictated Date/Time: 05/01/2017 11:44 AM
[2017-05-01 12:19] LABS: BASO % 0.4 %; BASO ABS # 0.02 K/uL (0-0.2); COMPLETE YES; EOS % 5.7 %; IG% 0.4 %; LYMPH % 46.2 %; LYMPH ABS # 2.18 K/uL (1.2-3.4); MONO % 8.3 %
[2017-05-01] MEDS ORDERED: CEFTRIAXONE SOD INJ 1 GM ADDVIAL IV STA (12:33)
[2017-05-01] MEDS ORDERED: CEFD300C2 PO (12:37)
[2017-05-01 13:23] VITALS: BP 160/116; PULSE 78; O2SAT 96
== END 2017-05-01 13:27 | disposition home or self-care (01) ==
LOC: C.EDB 09:57
DX: N39.0 Urinary tract infection, site not specified (principal); E87.6 Hypokalemia; D64.9 Anemia, unspecified; N20.0 Calculus of kidney; K80.20 Calculus of gallbladder without cholecystitis without obstruction

== ENCOUNTER → 2017-05-17 | Outpatient (CLI) | payer OTHER ==
[~2017-05-17] MED LIST changes: +IBUP-103 PO
[2017-05-17 10:53] LABS: BASO % 0.4 %; BASO ABS # 0.02 K/uL (0-0.2); COMPLETE YES; EOS % 3.4 %; HEMATOCRIT 39.6 % (42-52); IG% 0.2 %; LYMPH % 45.6 %; LYMPH ABS # 2.04 K/uL (1.2-3.4); MEAN CELL VOLUME 81.6 fL (80-100); MEAN CORPUSCULAR HGB CONC 34.3 g/dl (32-36); MEAN PLATELET VOLUME 9.2 fL (7.4-10.4); MONO % 9.8 %; NEUT % 40.6 %; PLATELET COUNT 219 K/uL (130-400); RED BLOOD COUNT 4.85 M/uL (4.7-6.1); WHITE BLOOD COUNT 4.47 K/uL (4.8-10.8)
--- NOTE | 2017-05-17 13:00 | DIAGNOSTIC IMAGING REPORT ---
THORACIC SPINE 3 VIEWS CLINICAL HISTORY: Thoracic back pain. FINDINGS: AP, lateral, and swimmer's views of the thoracic spine are correlated with MRI of the thoracic spine dated 11/29/2009. The skeletal structures are osteopenic. There is no radiographic evidence of fracture or malalignment. Anterior osteophytes are seen throughout. Fusion hardware is present at the thoracolumbar juncture. There is minimal S-shaped thoracic scoliosis. Mild disc space narrowing is noted in the midthoracic region. The transverse processes and pedicles are grossly intact as seen on the frontal view. The imaged lung parenchyma appears clear. IMPRESSION: 1. No acute bony abnormality is seen involving the thoracic spine. 2. Osteopenia, mild degenerative change, and postoperative change as above. Electronically signed by: Tito Hope M.D. 05/17/2017 12:59 PM Dictated Date/Time: 05/17/2017 12:56 PM
--- NOTE | 2017-05-17 13:04 | DIAGNOSTIC IMAGING REPORT ---
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 No evidence of hardware complication. Background mild bone demineralization. Spinal stimulator device is noted with battery pack along the right lateral abdominal wall and a single lead entering the central canal region at the L1-L2 level extending superiorly outside the [id number] into the midthoracic region. Remote compression 25% anterior endplate compression deformity of L1 is unchanged with mild retropulsion again seen. No acute compression deformity or malalignment. Moderate facet arthropathy and endplate spurring of the lower lumbar spine. Moderate degenerative changes of the bilateral hips. IMPRESSION: 1. No acute fracture or subluxation of the lumbar spine. 2. Remote 25% anterior endplate compression deformity of L1 with mild retropulsion. 3. Posterior chris and screw fusion of T11-L3 without evidence of hardware complication. 4. Single spinal stimulator lead enters the central canal at L1-L2 extending superiorly outside the [id number]. The above report was generated using voice recognition software. It may contain grammatical, syntax or spelling errors. Electronically signed by: Kevin Zarate M.D. 05/17/2017 1:02 PM Dictated Date/Time: 05/17/2017 12:58 PM
--- NOTE | 2017-05-17 13:07 | DIAGNOSTIC IMAGING REPORT ---
C-SPINE ROUTINE 4 OR 5 VIEWS CLINICAL HISTORY: Cervicalgia. Chronic pain syndrome. COMPARISON STUDY: Cervical spine MRI November 29, 2009. FINDINGS: There is reversal of the normal cervical lordosis. Vertebral body heights are maintained. There is slight obscuration of the inferior endplate of C7. No fracture or suspicious lesion is identified on this exam. There is mild to moderate disc space narrowing with moderate anterior osteophytosis at the C4-C5, C5-C6 and C6-C7 levels. There is mild multilevel facet arthrosis. IMPRESSION: 1. No cervical spine fracture. 2. Moderate multilevel degenerative disc disease and facet arthrosis of the cervical spine. 3. Reversal of normal cervical lordosis. Electronically signed by: Taye Metz M.D. 05/17/2017 1:06 PM Dictated Date/Time: 05/17/2017 1:04 PM
[2017-05-17 14:02] LABS: ALT/SGPT 55 U/L (12-78); BLOOD UREA NITROGEN 17 mg/dl (7-18); BUN/CREATININE RATIO 30.3 (10-20); CALCIUM 9.4 mg/dl (8.5-10.1); CARBON DIOXIDE 31 mmol/L (21-32); CHLORIDE 104 mmol/L (98-107); CHOLESTEROL 249 mg/dl (0-200); CREATININE 0.55 mg/dl (0.60-1.40); GLUCOSE 87 mg/dl (70-99); POTASSIUM 3.8 mmol/L (3.5-5.1); SODIUM 138 mmol/L (136-145)
[2017-05-17 14:05] LABS: ALB/GLOB RATIO 1.2 (0.9-2); ALKALINE PHOSPHATASE 123 U/L (45-117); AST/SGOT 30 U/L (15-37); CHOLESTEROL/HDL RATIO 6.9; HDL CHOLESTEROL 36 mg/dl; LDL CHOLESTEROL CALCULATED 171 mg/dl; TRIGLYCERIDES 209 mg/dl (0-150); VERY LOW DENSITY LIPOPROT CALC 42 mg/dl
== END | disposition home or self-care (01) ==
LOC: C.RADBC 08:59
PROVIDERS: ATTEND Internal Medicine
DX: N39.0 Urinary tract infection, site not specified (principal); M54.6 Pain in thoracic spine; N31.9 Neuromuscular dysfunction of bladder, unspecified; R03.0 Elevated blood-pressure reading, without diagnosis of hypertension; E78.5 Hyperlipidemia, unspecified; G47.39 Other sleep apnea; M85.88 Other specified disorders of bone density and structure, other site; G89.4 Chronic pain syndrome; M47.816 Spondylosis without myelopathy or radiculopathy, lumbar region; M50.321 Other cervical disc degeneration at C4-C5 level; Z98.1 Arthrodesis status; Z96.9 Presence of functional implant, unspecified; M25.78 Osteophyte, vertebrae

== ENCOUNTER → 2017-06-17 | Outpatient (CLI) | payer OTHER ==
[~2017-06-17] MED LIST changes: +METH-1305 PO; -METH1TAB5 PO
--- NOTE | 2017-06-17 09:07 | DIAGNOSTIC IMAGING REPORT ---
ULTRASOUND KIDNEYS AND BLADDER CLINICAL HISTORY: Neurogenic bladder. COMPARISON STUDY: Abdominal CT dated 05/01/2017. TECHNIQUE: Real-time, grayscale, and color flow sonography of the kidneys and bladder is performed. Images are reviewed in the transverse and longitudinal planes. FINDINGS: Kidneys: The kidneys demonstrate mild cortical atrophy. The right kidney measures 9.4 x 4.5 x 5.3 cm and the left kidney measures 10.4 x 6.0 x 5.3 cm. There is no hydronephrosis. Cortical scarring is noted in the right upper pole. No shadowing renal calculi are identified. There is no sonographic evidence of contour deforming renal mass lesion. No perinephric fluid is identified. Bladder: The bladder is mildly distended and the wall appears slightly thickened/trabeculated. Bilateral ureteral jets were seen. IMPRESSION: 1. The kidneys demonstrate mild cortical atrophy and are without hydronephrosis. 2. The bladder was distended, and the wall appears mildly thickened and trabeculated. Electronically signed by: Tito Hope M.D. 06/17/2017 9:05 AM Dictated Date/Time: 06/17/2017 9:03 AM
== END | disposition home or self-care (01) ==
LOC: C.ULTR 08:26
PROVIDERS: ATTEND Urology
DX: N31.9 Neuromuscular dysfunction of bladder, unspecified (principal); N26.1 Atrophy of kidney (terminal)

== ENCOUNTER 2017-08-28 12:13 | Emergency (ER) | payer OTHER ==
[~2017-08-28] VITALS: Ht 177.8 cm; Wt 104.0 kg
[2017-08-28 12:19] VITALS: TEMP 36.7; Ht 177.8 cm; Wt 104.0 kg
[2017-08-28] MEDS ORDERED: MORPHINE PUMP SC (12:34)
[2017-08-28] MEDS ORDERED: SODIUM CHLORIDE 0.9% 1000ML 1,000 ML IV STA (12:54)
[2017-08-28] MEDS ORDERED: ACETAMINOPHEN 500 MG TAB PO STA (12:54)
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
[2017-08-28 13:26] LABS: BASO % 0.4 %; BASO ABS # 0.02 K/uL (0-0.2); EOS % 5.6 %; EOS ABS # 0.25 K/uL (0-0.5); HEMATOCRIT 41.4 % (42-52); HEMOGLOBIN 14.5 g/dL (14.0-18.0); IG# 0.03 K/uL (0.00-0.02); LYMPH % 32.7 %; LYMPH ABS # 1.46 K/uL (1.2-3.4); MEAN CORPUSCULAR HEMOGLOBIN 29.1 pg (25-34); MEAN PLATELET VOLUME 8.9 fL (7.4-10.4); MONO % 7.8 %; MONO ABS # 0.35 K/uL (0.11-0.59); NEUT % 52.8 %; NEUT ABS # 2.36 K/uL (1.4-6.5); PLATELET COUNT 204 K/uL (130-400); RED CELL DISTRIBUTION WIDTH CV 13.1 % (11.5-14.5); RED CELL DISTRIBUTION WIDTH SD 39.2 fL (36.4-46.3); WHITE BLOOD COUNT 4.47 K/uL (4.8-10.8)
[2017-08-28] MEDS ORDERED: OPTIRAY 320 IV PRN (13:30)
[2017-08-28 13:45] LABS: ALT/SGPT 69 U/L (12-78); BLOOD UREA NITROGEN 15 mg/dl (7-18); CALCIUM 9.7 mg/dl (8.5-10.1); CARBON DIOXIDE 28 mmol/L (21-32); GLUCOSE 103 mg/dl (70-99); LIPASE 157 U/L (73-393); SODIUM 138 mmol/L (136-145)
[2017-08-28 14:10] LABS: ALKALINE PHOSPHATASE 130 U/L (45-117); AST/SGOT 34 U/L (15-37); TOTAL PROTEIN 7.3 gm/dl (6.4-8.2)
--- NOTE | 2017-08-28 14:38 | DIAGNOSTIC IMAGING REPORT ---
CT OF THE ABDOMEN AND PELVIS WITH CONTRAST CLINICAL HISTORY: Right upper quadrant and epigastric pain. COMPARISON STUDY: CT of the abdomen and pelvis May 01, 2017 and renal ultrasound June 17, 2017. TECHNIQUE: Following IV administration of 116 mL of Optiray-320, axial images of the abdomen and pelvis were obtained from the lung bases to the proximal femurs. Images were reviewed in the axial, sagittal, and coronal planes. IV contrast was administered without complication. A dose lowering technique was utilized adhering to the principles of ALARA. CT DOSE: 954.68 mGy.cm FINDINGS: Intrathecal catheter is noted. Postoperative findings within the spine are present. No pneumatosis, free air or portal venous gas is present. There are gallstones within the gallbladder without evidence for acute cholecystitis. Fat-containing ventral hernia is noted. There is suspected fatty infiltration of the liver. There are no hepatic lesions. The spleen, adrenal glands, left kidney and pancreas are normal. There is a 5 mm right renal calculus. There are no ureteral calculi and there is no hydronephrosis. Multifocal scarring within the right kidney is noted. Chronic bladder deformity is unchanged. There is no evidence for a bowel obstruction. The appendix is normal. A bowel anastomosis is noted. There is no lymphadenopathy or ascites. Marked muscular atrophy is again noted. IMPRESSION: 1. No acute process within the abdomen or pelvis. 2. Cholelithiasis without evidence for acute cholecystitis. 3. Right-sided nephrolithiasis. No ureteral calculi or hydronephrosis. Unchanged chronic deformity of the bladder which may be postsurgical. 4. Marked muscular atrophy. Electronically signed by: Taye Metz M.D. 08/28/2017 2:36 PM Dictated Date/Time: 08/28/2017 2:30 PM
--- NOTE | 2017-08-28 16:03 | DIAGNOSTIC IMAGING REPORT ---
BILIARY ULTRASOUND CLINICAL HISTORY: Right upper quadrant abdominal pain COMPARISON STUDY: CT scan dated 08/28/2017 FINDINGS: The examination is very limited from a technical standpoint. There are lack of optimal acoustic windows. The liver is of increased echogenicity, likely secondary to hepatic steatosis. The pancreas was poorly visualized. There is no right-sided hydronephrosis. There is no ductal dilatation. The gallbladder was not visualized with certainty. There is an area of shadowing in the region of the gallbladder fossa. This could represent bowel or stone filled gallbladder. IMPRESSION: 1. Very limited study from a technical standpoint 2. Suspected hepatic steatosis 3. No evidence of ductal dilatation 4. Area of shadowing in the region of the gallbladder fossa. While likely representing a stone filled gallbladder, this could also represent bowel Electronically signed by: Jared Hilario M.D. 08/28/2017 4:02 PM Dictated Date/Time: 08/28/2017 3:59 PM
[2017-08-28 16:28] VITALS: BP 142/90; PULSE 78; O2SAT 98
== END 2017-08-28 16:58 | disposition home or self-care (01) ==
LOC: C.EDB 12:14 → C.EDC 16:58
DX: K80.50 Calculus of bile duct without cholangitis or cholecystitis without obstruction (principal); K80.20 Calculus of gallbladder without cholecystitis without obstruction; Z83.3 Family history of diabetes mellitus; Z82.49 Family history of ischemic heart disease and other diseases of the circulatory system

== ENCOUNTER → 2017-09-12 | Outpatient (CLI) | payer OTHER ==
[~2017-09-12] MED LIST changes: +MORPHINE PUMP SC; +SINCALIDE INJ 2.1 MCG in SODIUM CHLORIDE 0.9% 100ML 100 ML IV SCH
--- NOTE | 2017-09-12 15:27 | DIAGNOSTIC IMAGING REPORT ---
HEPATOBILIARY EF IMAGING CLINICAL HISTORY: 42 years-old Male with R10.11 Right upper quadrant abdominal [id number]. Acute right upper quadrant abdominal pain TECHNIQUE: Following the intravenous administration of 5.6 mCi of technetium-99m Choletec, sequential abdominal images were obtained. In order to evaluate the contractile response of the gallbladder, 2.1 mcg of Kinevac was administered by slow intravenous infusion over 30 min starting approximately 60 min after the administration of the radiopharmaceutical. Sequential imaging was continued for 45 min after the start of the Kinevac infusion. The patient is currently on a morphine pump. COMPARISON: Hepatobiliary study 07/11/2012, right upper quadrant ultrasound and CT 08/28/2017 FINDINGS: There is prompt, uniform accumulation of the tracer by the liver. There is normal filling of the intrahepatic ducts, common bile duct and gallbladder and normal excretion of the tracer into the duodenum. There is adequate contraction of the gallbladder. The calculated gallbladder ejection fraction is 68% (normal >40%). There is no significant enterogastric reflux. IMPRESSION: 1. Normal contractile response of the gallbladder to Kinevac infusion. 2. Normal biliary imaging study. The above report was generated using voice recognition software. It may contain grammatical, syntax or spelling errors. Electronically signed by: Kevin Zarate M.D. 09/12/2017 3:26 PM Dictated Date/Time: 09/12/2017 3:21 PM
== END | disposition home or self-care (01) ==
LOC: C.NUCL 12:38
PROVIDERS: ATTEND Internal Medicine
DX: R10.11 Right upper quadrant pain (principal)

== ENCOUNTER 2017-09-26 08:03 | Day surgery (SDC) | payer OTHER ==
[2017-09-16 13:56] VITALS: BMI 34.0
[~2017-09-26] VITALS: Ht 177.8 cm; Wt 106.8 kg
[~2017-09-26 08:03] MED LIST changes: +ACETAMINOPHEN 1000 MG/100 ML IV IV ONE; +CEFAZOLIN 2000MG IV PUSH 15 ML IV SCH; +HEPARIN SOD 5000 UNIT/0.5 ML CARP SQ SCH; +LACTATED RINGER'S 1000ML 1,000 ML IV SCH; -SINCALIDE INJ 2.1 MCG in SODIUM CHLORIDE 0.9% 100ML 100 ML IV SCH; +[UNRECOGNIZED DRUG - REMARK] SCH
[2017-09-26 08:42] VITALS: Ht 177.8 cm; Wt 106.8 kg
[2017-09-26] MEDS ORDERED: HYDR-5688 PO (09:33)
[2017-09-26] MEDS ORDERED: FENTANYL CITRATE INJ 50 MCG/1 ML 2 ML VIAL ONE ×4 (09:36→12:46)
[2017-09-26] MEDS ORDERED: MIDAZOLAM HCL 1 MG/ML 2ML VIAL ONE (09:36)
--- NOTE | 2017-09-26 09:37 | Discharge Instructions ---
Discharge Instructions Date of Service Sep 26, 2017. Visit Reason for Visit: Cholelithiasis, Incisional Hernia Discharge Discharge Diagnosis / Problem: laparoscopic cholecystectomy, hernia repair Discharge Goals Goal(s): Decrease discomfort Activity Recommendations Activity Limitations: as noted below Lifting Limitations: no more than 10 pounds Shower/Bathe: no limitations Driving or Machine Use: resume 3 days after discharge Anesthesia . Post Anesthesia Instructions: If you have had General Anesthesia or IV Sedation: * Do not drive today. * Resume driving when surgeon permits. * Do not make important decisions or sign legal documents today. * Call surgeon for: 1. Temperature elevations greater than 101 degrees F. 2. Uncontrollable pain. 3. Excessive bleeding. 4. Persistent nausea and vomiting. 5. Medication intolerance (nausea, vomiting or rash). * For nausea and vomiting use only clear liquids such as: tea, soda, bouillon until nausea subsides, then gradually increase diet as tolerated. * If you have any concerns or questions, call your surgeon's office. If physician is unavailable and it is an emergency, call 911 or go to the nearest emergency room. . Instructions / Follow-Up Instructions / Follow-Up Dr. Hester in 2 weeks as planned, call [phone] for any questions Diet Recommendations Recommended Home Diet: no limitations Pending Studies Studies pending at discharge: yes List of pending studies: pathology Medical Emergencies . Who to Call and When: Medical Emergencies: If at any time you feel your situation is an emergency, please call 911 immediately. . Non-Emergent Contact Non-Emergency issues call your: Surgeon Call Non-Emergent contact if: you have a fever, temperature is above 101.5, your pain is not controlled, you have any medication questions . . "Provider Documentation" section prepared by Christian Cervantes. .
[2017-09-26] MEDS ORDERED: BUPIVACAINE/EPINEPHRINE 0.5% MPF 1:200,000 30 ML VIAL ONE (09:38)
[2017-09-26] MEDS ORDERED: NURSING VERBAL MED ORDER ONE (10:15)
[2017-09-26] MEDS ORDERED: PROPOFOL IV EMULSION 10 MG/ML 20 ML VIAL IV ONE (10:33)
[2017-09-26] MEDS ORDERED: LIDOCAINE HCL 2% 2 ML VIAL (20MG/ML) ONE (10:33)
[2017-09-26] MEDS ORDERED: DEXAMETHASONE SOD INJ 4 MG/ML VIAL ONE (10:33)
[2017-09-26] MEDS ORDERED: ROCURONIUM BROMIDE 10 MG/ML 5 ML VIAL IV ONE (10:33)
[2017-09-26] MEDS ORDERED: ONDANSETRON INJ 2 MG/ML 2 ML VIAL ONE (10:33)
[2017-09-26] MEDS ORDERED: GLYCOPYRROLATE INJ 0.2 MG/ML VIAL ONE (11:53)
[2017-09-26] MEDS ORDERED: KETOROLAC TROMETHAMINE 30 MG/ML VIAL ONE (11:53)
[2017-09-26] MEDS ORDERED: NEOSTIGMINE METHYLSULFATE 5 MG/5 ML SYR ONE (11:53)
--- NOTE | 2017-09-26 11:55 | [facility] Post Operative Brief Note ---
Immediate Operative Summary Operative Date Sep 26, 2017. Pre-Operative Diagnosis cholelithiasis, incisional hernia Post-Operative Diagnosis cholelithiasis, incisional hernia Procedure(s) Performed Laparoscopic Cholecystectomy, and Open Incisional Hernia Repair with Ovitex Mesh;enterolysis Surgeon Dr. Ramesh Hester Water Operator Surgeon(s) Christian Cervantes PA-C Estimated Blood Loss 50ML Findings Consistent with Post-Op Diagnosis Specimens Permanent Solution: A.) Gallbladder and Contents Drains kenroy into sub-q Anesthesia Type General Complication(s) none
[2017-09-26] MEDS ORDERED: FENTANYL CITRATE INJ 50 MCG/1 ML 2 ML VIAL IV PRN (12:00)
[2017-09-26] MEDS ORDERED: ONDANSETRON INJ 2 MG/ML 2 ML VIAL IV PRN ×2 (12:00→12:15)
[2017-09-26] MEDS ORDERED: FLUMAZENIL 0.1 MG/1 ML 10 ML VIAL IV PRN (12:00)
[2017-09-26] MEDS ORDERED: PROMETHAZINE HCL INJ 12.5 MG in SODIUM CHLORIDE 0.9% 50ML 50 ML IV PRN (12:00)
[2017-09-26] MEDS ORDERED: LABETALOL HCL IV 5 MG/ML 20ML IV PRN (12:00)
[2017-09-26] MEDS ORDERED: NALOXONE HCL 0.4 MG/1 ML VIAL/CARP IV PRN (12:00)
[2017-09-26] MEDS ORDERED: ATROPINE SULFATE 0.1 MG/ML 5ML SYR IV PRN (12:00)
[2017-09-26] MEDS ORDERED: EpHEDrine SULFATE INJ 50 MG/ML AMP IV PRN (12:00)
[2017-09-26] MEDS ORDERED: LACTATED RINGER'S 1000ML 1,000 ML IV SCH (12:10)
[2017-09-26] MEDS ORDERED: KETOROLAC TROMETHAMINE 30 MG/ML VIAL IV. PRN (12:15)
[2017-09-26] MEDS ORDERED: MoRPHine SULFATE 2 MG/ML CARP IV PRN (12:15)
[2017-09-26] MEDS ORDERED: HYDROCODONE/ACETAMIN 5/325MG TAB PO PRN (12:15)
--- NOTE | 2017-09-26 12:30 | [facility] Operative Report ---
Operative Report Operative Date Sep 26, 2017. Pre-Operative Diagnosis cholelithiasis, incisional hernia Post-Operative Diagnosis cholelithiasis, incisional hernia Procedure(s) Performed Laparoscopic Cholecystectomy, and Open Incisional Hernia Repair with Ovitex Mesh;enterolysis Surgeon Dr. Ramesh Hester Low Pressure Firer Surgeon(s) Christian Cervantes PA-C Estimated Blood Loss 50ML Specimens Permanent Solution: A.) Gallbladder and Contents Drains kenroy into sub-q Anesthesia Type General Complication(s) none Description of Procedure After informed consent was obtained the patient was taken the operating room and placed in a supine position. After successful intubation a Can catheter was placed and the abdomen was shaved and sterilely prepped and draped in usual fashion. A supraumbilical incision was made with 11 blade scalpel and carried down through soft tissue using electrocautery. Anterior rectus fascia was opened using electrocautery in 2 #0 Vicryl stay sutures were placed. Peritoneum was elevated with hemostats and incised under direct vision using a Metzenbaum scissor. A finger sweep was performed and a 12 mm Paris trocar was placed. The abdomen was insufflated to 18 mmHg. Laparoscope was inserted and the abdomen was examined 360. There were some adhesions in the lower abdomen. There was also a large upper midline hernia with some colon entrapped within it. Otherwise no other gross abnormalities are seen. We are able to place a subxiphoid 5 mm port and 2 right upper quadrant 5 mm ports under direct vision. The patient was then placed in reverse Trendelenburg position and slightly air planed to the left. The gallbladder was grasped and elevated superiorly and laterally. A [place] dissector was used to take down adhesions around the neck of the gallbladder. There was a small anterior vascular vessel that was skeletonized clipped and divided. After we did this I was unable to readily identify the cystic duct which was also skeletonized clipped twice proximally once distally and transected. In similar fashion the cystic artery was identified skeletonized clipped and divided. The gallbladder was then removed from the gallbladder fossa. It was removed intact and placed into an Endo Catch bag. There was small bleeding points on the gallbladder fossa which were controlled using electrocautery. Thorough irrigation was performed. At the end of the procedure there was adequate hemostasis and no evidence of any bile leaks. The gallbladder was then removed from the camera port site. All the trochars were removed and the abdomen was desufflated. The fascia of the camera port was closed using 0 Vicryl in a [id number] fashion. We decided to perform an open repair of the hernia because of the difficulty level. I made a incision directly over it with a 15 blade scalpel carried this down through the soft tissue using electrocautery. We entered the hernia sac and excised it. This exposed a rather large defect. I was able to grab the fascial edges with Danilo clamps and elevate them. I skeletonized the fascial edges using electrocautery. I did excise the falciform ligament as it was entrapped in the hernia as well. There was some large bowel that I took down using blunt finger fractionation as well as Metzenbaum scissors. We then primarily closed the fascial defect using #1 Ethibond in interrupted figure-of- eight fashion. Once we had it completely closed I skeletonized more fascia for several centimeters in all directions around the previous defect. I then used a piece of Ovitex mesh as an onlay. We secured it with 0 Ethibond in simple interrupted fashion. The mesh laid over the entire defect for several centimeters and laid tension-free. Thorough irrigation was performed. There was adequate hemostasis. We placed Merritt powder over all the raw surfaces. A 10 flat Rupesh-Calle drain was cut to appropriate size brought out through a separate stab incision. Wound was then closed in multiple layers using 0 Vicryl for deep layers 2-0 Vicryl for mid layers and 4-0 Monocryl for skin. The other trocar incisions were also closed with 4-0 Monocryl. Marcaine was injected around the incision for postoperative analgesia and sterile dressings as well as an abdominal binder were applied. My physician's professional nursing assistant was present throughout the entire case. He helped prep the patient. He helped with retraction regarding the gallbladder. He helped with retraction and exposure for the hernia repair as well as wound closure and dressing placement at the end of the case. I attest to the content of the Intraoperative Record and any orders documented therein. Any exceptions are noted below.
--- NOTE | 2017-09-26 13:26 | Anesthesiology Progress Note ---
Anesthesia Post Op Note Date & Time Sep 26, 2017 at 13:26 Vital Signs Pain Intensity: 3 Vital Signs Past 12 Hours Date Time Temp Pulse Resp B/P (MAP) Pulse Ox O2 Delivery O2 Flow Rate FiO2 09/26/17 13:20 37.4 63 18 140/87 97 Room Air 09/26/17 13:10 78 18 131/87 98 Room Air 09/26/17 13:00 66 18 127/72 93 Room Air 09/26/17 12:50 70 18 145/97 98 Room Air 09/26/17 12:40 72 18 128/91 100 Room Air 09/26/17 12:30 59 18 135/83 100 Oxymask 10 09/26/17 12:20 62 16 142/91 100 Oxymask 10 09/26/17 12:14 36.1 67 16 142/92 100 Oxymask 10 Notes Mental Status: alert / awake / arousable, participated in evaluation Pt Amnestic to Procedure: Yes Nausea / Vomiting: adequately controlled Pain: adequately controlled Airway Patency, RR, SpO2: stable & adequate BP & HR: stable & adequate Hydration State: stable & adequate Anesthetic Complications: no major complications apparent
[2017-09-26 13:30] VITALS: BP 140/84; PULSE 68; TEMP 37.2; O2SAT 94
[2017-09-26 14:00] VITALS: BP 140/84; PULSE 78; TEMP 37; O2SAT 96
[2017-09-26] MEDS ORDERED: HYDROCODONE/ACETAMIN 5/325MG TAB ONE (14:04)
[2017-09-26 14:30] VITALS: BP 111/83; PULSE 84; TEMP 36.6; O2SAT 95
[2017-09-26 15:00] VITALS: BP 116/74; PULSE 86; TEMP 36.6; O2SAT 95
== END 2017-09-26 15:50 | disposition home or self-care (01) ==
LOC: C.ACU 08:03
PROVIDERS: ATTEND Surgery
DX: K80.20 Calculus of gallbladder without cholecystitis without obstruction (principal); K43.2 Incisional hernia without obstruction or gangrene; M19.90 Unspecified osteoarthritis, unspecified site; E78.5 Hyperlipidemia, unspecified; G47.00 Insomnia, unspecified; G47.39 Other sleep apnea; Z87.442 Personal history of urinary calculi; M85.80 Other specified disorders of bone density and structure, unspecified site; Z87.440 Personal history of urinary (tract) infections; Z87.81 Personal history of (healed) traumatic fracture; Z83.3 Family history of diabetes mellitus; Z82.49 Family history of ischemic heart disease and other diseases of the circulatory system; Z88.1 Allergy status to other antibiotic agents; Z88.2 Allergy status to sulfonamides; Z88.8 Allergy status to other drugs, medicaments and biological substances; Q24.8 Other specified congenital malformations of heart; K21.9 Gastro-esophageal reflux disease without esophagitis; K44.9 Diaphragmatic hernia without obstruction or gangrene

== ENCOUNTER → 2018-03-07 | Outpatient (CLI) | payer OTHER ==
[~2018-03-07] MED LIST changes: -ACETAMINOPHEN 1000 MG/100 ML IV IV ONE; -CEFAZOLIN 2000MG IV PUSH 15 ML IV SCH; -HEPARIN SOD 5000 UNIT/0.5 ML CARP SQ SCH; -LACTATED RINGER'S 1000ML 1,000 ML IV SCH; -[UNRECOGNIZED DRUG - REMARK] SCH
== END | disposition home or self-care (01) ==
LOC: C.LABPBG 13:16
PROVIDERS: ATTEND Anesthesiology
DX: Z01.812 Encounter for preprocedural laboratory examination (principal); R82.90 Unspecified abnormal findings in urine

== ENCOUNTER → 2018-03-18 | Day surgery (SDC) | payer OTHER ==
[2018-03-03 10:45] VITALS: BMI 35.0
--- NOTE | 2018-03-03 13:33 | History and Physical ---
History & Physical Date of Service Mar 03, 2018. History & Physical Plan of care discussed with Dr. Acevedo CHIEF COMPLAINT: Intractable low back pain and lower extremity radicular pain HISTORY OF PRESENT ILLNESS: : Mr. Murguia is a 42 year old white male that is well known to the [facility] with a history of chronic intractable low back pain and bilateral lower extremity neuropathic pain and spasm. A tree fell on him which resulted in a T11 spinal cord injury. He reports chronic thoracolumbar aching and burning into the bilateral legs. With the current intrathecal Morphine infusion rate of the intrathecal pump, his pain is adequately controlled. Pain ranges from 0-2/10. Patient denies any constitutional complaints. PAST MEDICAL HISTORY: 1. Obstructive sleep apnea 2. Paraplegia 3. History of T11 spinal cord injury 4. History of nephrolithiasis 5. GERD 7. Hiatal hernia PAST SURGICAL HISTORY: 1. Bladder surgery 1995 2. Spinal surgery with fusion 1995 3. Decubitus debridement in 98, 99, 1999, 1999 who, 2010 4. ORIF right femur 2006 5. PEG tube insertion and removal 2003 and 2004 6. Intrathecal pump and catheter delivery system implantation 2011 7. Cholecystectomy 8. Herniorrhaphy SOCIAL HISTORY: He does live with his girlfriend. No tobacco, alcohol, or illicit substance use. ALLERGIES: 1. Diphenhydramine 2. Weekly 3. Adhesive 4. Aloe 5. Baclofen 6. Hydrocortisone 7. Megestrol 8. Nitrofurantoin 9. Oxybutynin 10. Pregabalin 11. Sulfa antibiotics 12. Hydromorphone 13. Alendronate 14. Benzyl alcohol 15. Cetyl Dimethicone 16. Cod liver oil 17. Dimethicone 18. Propylene glycol 19. Quinolone antibiotic 20. Vitamin A 21. Zinc oxide MEDICATIONS: 1. Gabapentin 800 mg 3 times daily 2. Methenamine Hippurate 1 gram PO BID 3. Multivitamin 4. Temazepam 30 mg at bedtime 5. Intrathecal morphine REVIEW OF SYSTEMS: Denies any constitutional, cardiac, pulmonary, neurological, GI, , extremity, endocrine, neuro, ENT, dermatological, or musculoskeletal complaints other than stated in HPI PHYSICAL EXAMINATION: VITAL SIGNS: Per admission GENERAL: Mr. Miguel is a 42-year-old white male that appears his stated age. He is in a non-motorized wheelchair. Speech and cognition is intact. Mood and affect is appropriate HEAD: Normocephalic; atraumatic. EYES: Pupils are round, equal, and reactive to light; EOM intact. ENT: No external ear discharge or lesions. No rhinorrhea or epistaxis. No mucosal lesions. NECK: Full ROM; trachea is midline; no TTP; no cervical lymphadenopathy. CARDIO: Regular rate and rhythm. PULM: Clear to auscultation. No wheezes, rales, or rhonchi. CHEST: Regular chest respiration and excursion. ABDOMEN: Active bowel sounds throughout; non-tender to palpation. No peritoneal signs. No CVA tenderness bilaterally. Intrathecal pump is located in the right lower quadrant. EXTREMITIES: There are no focal spasms noted of the bilateral lower extremities. There is moderate rigidity noted at the knees and ankles. BACK: Well-healed midline surgical incision over the thoracolumbar region. No tenderness to palpation. Mild paravertebral muscle spasm. No trigger points noted. NEURO: CN II-XII grossly intact. AAO x 3. KIN: No lesions, erythema, or rashes noted. ASSESSMENT: Intractable low back pain and lower extremity radicular pain TREATMENT: Mr. Miguel has a chronic history of intractable back pain and bilateral neuropathic pain in the legs. His pain is adequately controlled with the current intrathecal pump infusion rate containing Morphine. Patients pump BETTINA is 6 months and it is recommended that this intrathecal pump be replaced. Patient is scheduled on 03/18/18 for a replacement of the intrathecal drug administration system with a possible catheter revision.
--- NOTE | 2018-03-04 16:21 | PAT Medication Instructions ---
Service Date Mar 04, 2018. Current Home Medication List Gabapentin (Gabapentin), 800 MG PO TID Ibuprofen Tab (Advil), 200 MG PO UD PRN for PRN Methenamine Hippurate (Methenamine Hippurate), 1 GM PO BID Multivitamin (Multivitamin), 1 TAB PO BID Temazepam (Restoril), 30 MG PO HS [Morphine Pump], Unknown Dose SC UD Medication Instructions For Your Scheduled Surgery - Continue as directed per surgeon: [Morphine Pump], Unknown Dose SC UD - Check with surgeon for instructions: Ibuprofen Tab (Advil), 200 MG PO UD PRN for PRN - Hold the following medications the morning of surgery: Multivitamin (Multivitamin), 1 TAB PO BID - Take the following medications the morning of surgery with a sip of water: Gabapentin (Gabapentin), 800 MG PO TID Methenamine Hippurate (Methenamine Hippurate), 1 GM PO BID - Take the following medications as scheduled the night before surgery: Temazepam (Restoril), 30 MG PO HS Multivitamin (Multivitamin), 1 TAB PO BID Methenamine Hippurate (Methenamine Hippurate), 1 GM PO BID Gabapentin (Gabapentin), 800 MG PO TID If you have any questions please call us at [phone] or [phone] or [phone]
[2018-03-05 10:23] LABS: BASO % 0.5 %; BASO ABS # 0.02 K/uL (0-0.2); EOS % 3.6 %; EOS ABS # 0.16 K/uL (0-0.5); HEMATOCRIT 41.9 % (42-52); IG# 0.03 K/uL (0.00-0.02); LYMPH % 44.4 %; LYMPH ABS # 1.96 K/uL (1.2-3.4); MEAN CELL VOLUME 81.8 fL (80-100); MEAN CORPUSCULAR HEMOGLOBIN 27.3 pg (25-34); MEAN CORPUSCULAR HGB CONC 33.4 g/dl (32-36); MEAN PLATELET VOLUME 9.2 fL (7.4-10.4); MONO % 6.3 %; MONO ABS # 0.28 K/uL (0.11-0.59); NEUT % 44.5 %; NEUT ABS # 1.96 K/uL (1.4-6.5); PLATELET COUNT 204 K/uL (130-400); RED CELL DISTRIBUTION WIDTH CV 13.4 % (11.5-14.5); RED CELL DISTRIBUTION WIDTH SD 40.4 fL (36.4-46.3); WHITE BLOOD COUNT 4.41 K/uL (4.8-10.8)
[2018-03-05 10:29] LABS: CALCIUM 9.3 mg/dl (8.5-10.1); CREATININE 0.61 mg/dl (0.60-1.40); POTASSIUM 3.6 mmol/L (3.5-5.1)
[~2018-03-18] VITALS: Ht 177.8 cm; Wt 104.0 kg
[~2018-03-18] MED LIST changes: +ATROPINE SULFATE 0.1 MG/ML 5ML SYR IV PRN; +BUPIVACAINE/EPINEPHRINE 0.5% MPF 1:200,000 30 ML VIAL ONE; +CEFAZOLIN 2000 MG/60 ML D5W 50 ML IV SCH; +CEFAZOLIN SOD 2000MG/15 ML IV PUSH ONE; +EpHEDrine SULFATE INJ 50 MG/ML AMP IV PRN; +FENTANYL CITRATE INJ 50 MCG/1 ML 2 ML VIAL IV PRN; +FENTANYL CITRATE INJ 50 MCG/1 ML 2 ML VIAL ONE; +LACTATED RINGER'S 1000ML 1,000 ML IV SCH; +LIDO 2%/EPINEPHRINE 1:100000 20 ML VIAL ONE; +LIDOCAINE 2%/EPINEPHRINE 1:100,000 1.8 ML CARTRIDGE ONE; +LIDOCAINE HCL 2% 2 ML VIAL (20MG/ML) ONE; +LIDOCAINE HCL 2% LOCAL 50ML VIAL ONE; +MIDAZOLAM HCL 1 MG/ML 2ML VIAL ONE; +ONDANSETRON INJ 2 MG/ML 2 ML VIAL IV PRN; +OXYCODONE HCL IR 5 MG TAB (IMMEDIATE RELEASE) PO PRN; +POVIDONE-IODINE OP SOLN 30 ML BTL ONE; +PROPOFOL IV EMULSION 10 MG/ML 20 ML VIAL ONE; +ROCURONIUM BROMIDE 10 MG/ML 5 ML VIAL ONE
[2018-03-18 08:39] VITALS: BP 146/95; PULSE 91; TEMP 36.8; O2SAT 99; Ht 177.8 cm; Wt 104.0 kg
--- NOTE | 2018-03-18 08:40 | History & Physical Bridge Note ---
H&P Re-Evaluation Bridge Note: I have examined the patient, reviewed the History & Physical and in the interval since the performance of the History & Physical I have noted the following changes of clinical significance: No changes noted History reviewed, examination performed, pertinent laboratory and imaging studies reviewed. No contraindications noted to proceeding with the proposed procedure. Potential risks including infection, nerve injury, bleeding, hematoma or seroma formation, additional surgical procedures to address these complications, as well as failure to achieve complete relief of preoperative symptoms after the procedure were discussed with the patient. Risks associated with anesthesia required to perform this procedure were reviewed. Alternatives to this procedure were discussed with the patient. Patient's questions were answered. Patient gave informed consent.
--- NOTE | 2018-03-18 09:29 | Discharge Instructions ---
Discharge Instructions Date of Service Mar 18, 2018. Visit Reason for Visit: End-Of-Life Intrathecal Drug Administration System Discharge Discharge Diagnosis / Problem: Chronic pain. Replacement of intrathecal pump. Discharge Goals Goal(s): Decrease discomfort, Improve function, Increase independence Medications Stopped Medications Name(s): None Activity Recommendations Activity Recommendations: no lifting of items 5lbs or more, no repetitive bending, no repetitive twists, no showers for 3 days Exercise/Sports Limitations: until after follow-up appointment May Resume Sexual Activity: after follow-up appointment Shower/Bathe: keep incision dry Anesthesia . Post Anesthesia Instructions: If you have had General Anesthesia or IV Sedation: * Do not drive today. * Resume driving when surgeon permits. * Do not make important decisions or sign legal documents today. * Call surgeon for: * Temperature elevations greater than 101 degrees F. * Uncontrollable pain. * Excessive bleeding. * Persistent nausea and vomiting. * Medication intolerance (nausea, vomiting or rash). * For nausea and vomiting use only clear liquids such as: tea, soda, bouillon until nausea subsides, then gradually increase diet as tolerated. * If you have any concerns or questions, call your surgeon's office. If physician is unavailable and it is an emergency, call 911 or go to the nearest emergency room. . Instructions Instructions / Follow-Up . * Change dressings daily. Apply sterile dry gauze. * Call [facility] [phone] or go to the nearest emergency room if he experience high fevers, new back pain, new neurological symptoms such as numbness or weakness in the lower extremity or new bowel bladder incontinence. Also of call if he experience a headache that is positional. * Wear abdominal binder. * No showers for 3 days. * Resume normal activity. No repetitive bending, twisting or reaching overhead for 2 weeks. Do not lift more than 5 pounds for 2 weeks. . Follow-Up Follow-Up: 1 week in office for wound check Diet Recommendations Home Diet: resume previous diet Procedures Procedures Performed: Explantation of current intrathecal pump and replacement. Pending Studies Studies pending at discharge: no Medical Emergencies . Who to Call and When: Medical Emergencies: If at any time you feel your situation is an emergency, please call 911 immediately. . Non-Emergent Contact Non-Emergency issues call your: Pain Management provider Call Non-Emergent contact if: you have a fever, temperature is above 101, wound has increased drainage, wound has increased redness, wound has increased pain, you have any medication questions . . "Provider Documentation" section prepared by Mynor Acevedo. .
--- NOTE | 2018-03-18 11:30 | [facility] Operative Report ---
Operative Report Operative Date Mar 18, 2018. Pre-Operative Diagnosis Intractable low back pain and lower extremity radicular pain Post-Operative Diagnosis Intractable low back pain and lower extremity radicular pain Procedure(s) Performed Explantation of current intrathecal pump and replacement. Surgeon Dr. Acevedo Rn Pacu Surgeon(s) none Estimated Blood Loss 5 ml Specimens a. explanted pain pump Anesthesia Type General Complication(s) none Disposition Recovery Room / PACU Description of Procedure INTRATHECAL PUMP REPLACEMENT PROCEDURE PERFORMED: Intrathecal pump replacement PREOPERATIVE DIAGNOSIS: End of life intrathecal pump POSTOPERATIVE DIAGNOSIS: Same. COMPLICATIONS: None. SURGEON: Dr. Karina Acevedo. ANESTHESIA: General/LMA. MATERIAL FORWARDED TO THE LAB: Explanted pump. EBL: 5 ml IMPLANTED PUMP SIZE: 20 mL. MEDICATIONS PLACED IN THE PUMP: Preservative-free morphine 10 mg/mL, 19 mL. INDICATIONS: The patient had an end of life pump with less than 1 month prior to system failure, thus requiring replacement. The patient was explained the risks, benefits, alternatives of the procedure and agreed to proceed as above. Informed consent was obtained and witnessed. A time out was performed after the patient was brought into the Operating Room. Antibiotics were given. The patient was then induced with general anesthesia without complications and was placed in the supine. The skin was prepped with DuraPrep and Betadine and draped in sterile fashion. The existing pump was identified and using a scalpel , electro cautery, and blunt dissection, the existing pump was exposed. The four retaining sutures were removed and the old pump was explanted. The catheter was disconnected from the old pump and free flowing CSF was noted. The new pump was opened and prepared according to [employer] standards and was filled with 19 mL of new medication of same type and concentration. The pump catheter was secured to the new pump and secured. The catheter access port was accessed and revealed free flowing CSF. Next, the pocket was irrigated with sterile normal saline with bacitracin. Hemostasis was checked. The new pump was placed into the pocket in the 12 O'clock position. The intrathecal pump was anchored in the pocket with 4-0 Prolene sutures. Both wounds were irrigated with bacitracin-containing normal saline. Both wounds were closed in similar fashion using continuous 0 antibiotic coated Stratafix suture for deeper layer and running 3-0 antibiotic coated Stratafix suture for subcuticular layer. Prineo to the skin. 4 x 4 gauze and pressure dressing was applied to both sites. Abdominal binder was placed. At the conclusion of the procedure, the pump was re-interrogated and reprogrammed to deliver 1.309 mg of morphine per day. The patient was allowed to emerge from general anesthesia and transported to the recovery room in stable condition uneventfully. The patient will follow up at [facility] pain clinic within 7 days for a wound check and then plan to have the maria elena removed at day 14. I attest to the content of the Intraoperative Record and any orders documented therein. Any exceptions are noted below.
--- NOTE | 2018-03-18 12:15 | Anesthesiology Progress Note ---
Anesthesia Post Op Note Date & Time Mar 18, 2018 at 12:15 Vital Signs Pain Intensity: 2 Vital Signs Past 12 Hours Date Time Temp Pulse Resp B/P (MAP) Pulse Ox O2 Delivery O2 Flow Rate FiO2 03/18/18 12:00 75 14 130/73 97 Room Air 03/18/18 11:50 65 12 136/84 100 Oxymask 10 03/18/18 11:40 85 20 140/88 100 Oxymask 03/18/18 11:33 36.0 76 14 155/105 100 Oxymask 10 03/18/18 08:39 36.8 91 18 146/95 (112) 99 Room Air Notes Mental Status: alert / awake / arousable, participated in evaluation Pt Amnestic to Procedure: Yes Nausea / Vomiting: adequately controlled Pain: adequately controlled Airway Patency, RR, SpO2: stable & adequate BP & HR: stable & adequate Hydration State: stable & adequate Anesthetic Complications: no major complications apparent
[2018-03-18 12:30] VITALS: BP 140/94; PULSE 79; TEMP 36.3; O2SAT 100
[2018-03-18 12:56] VITALS: BP 141/85; PULSE 74; O2SAT 97
[2018-03-18 13:30] VITALS: BP 126/66; PULSE 85; TEMP 36.8; O2SAT 96
== END | disposition home or self-care (01) ==
LOC: C.ACU 07:41
PROVIDERS: ATTEND Anesthesiology
DX: Z46.2 Encounter for fitting and adjustment of other devices related to nervous system and special senses (principal); M54.16 Radiculopathy, lumbar region; G89.29 Other chronic pain; I10 Essential (primary) hypertension; G47.33 Obstructive sleep apnea (adult) (pediatric); E66.9 Obesity, unspecified; G82.20 Paraplegia, unspecified; K21.9 Gastro-esophageal reflux disease without esophagitis; M19.90 Unspecified osteoarthritis, unspecified site; G89.4 Chronic pain syndrome; Z88.2 Allergy status to sulfonamides; Z88.8 Allergy status to other drugs, medicaments and biological substances; Z79.899 Other long term (current) drug therapy; Z68.35 Body mass index [BMI] 35.0-35.9, adult